=== PATIENT | female | born 1955 | race Caucasian/White ===

== ENCOUNTER 2017-06-26 15:34 | Inpatient (IN) ==
[2017-06-26] MEDS ORDERED: ASPIRIN 81 MG TAB.CHEW CHEWED ONE (15:57)
[2017-06-26] MEDS ORDERED: 0.9 % SODIUM CHLORIDE 1,000 ML IV ONE (15:57)
[2017-06-26] MEDS ORDERED: KETOROLAC 30 MG/ML VIAL IV ONE (15:57)
--- NOTE | 2017-06-26 16:02 | Emergency Department Note ---
Chest Pain HPI - General Source: patient, EMS Mode of arrival: EMS <Tim Amos - Last Filed: 06/26/17 15:58> - General Source: patient, EMS Mode of arrival: EMS Limitations: no limitations <Gary Zheng - Last Filed: 06/26/17 21:48> - General Chief Complaint: Chest Pain Stated Complaint: Chest pain Time Seen by Provider: 06/26/17 15:57 - History of Present Illness HPI Narrative: this is a 61 year old female coming into the ER today with c/o chest pain x 2 days. States has chest pain, shortness of breath, difficuly breathing. Denies fevers, chills, cough, nausea, vomiting, diarrhea, constipatio. States feels crappy upon illiciting furher information states she feels sad and depressed. Reports has thoughts of wanting to hurt herself and kill herself x 3 days. Denies wanting to hurt others or kill others at this presen ttime. Patient inappropriately laughed periodically during patient interview and exam. good eye contact. Patient would not answer as to why she feel sad, depressed and wanted to hurt and kill herself. (Tim Amos) I saw this patient with Tim Amos student and agree with his documentation. I also interviewed and examined the patient myself. Further questioning reveals patient is frustrated from chronic pain and is therefore thinking about suicide. Right now she is only on tramadol, but in the past has been taking stronger medicines. Additionally there is concern that she may have recurrence of her lung cancer treated with radiation last year. (Gary Zheng) - Related Data Home Medications Medication Instructions Recorded Confirmed acetaminophen 325 mg tablet 650 mg PO Q4H PRN 05/07/16 06/26/17 alteplase 2 mg intra-catheter 2 mg INTRA-CATHETER PRN ml 05/07/16 06/26/17 solution Budesonide/Formoterol Fumarate 10.2 gm IH BID 06/26/17 06/26/17 [Symbicort 160-4.5 Mcg Inhaler] Clopidogrel Bisulfate [Plavix] 75 mg PO DAILY 06/26/17 06/26/17 Fluticasone Propionate [Flovent 50 mcg IH DAILY 06/26/17 06/26/17 Diskus] Isosorbide Dinitrate [Isordil] 5 mg PO TID 06/26/17 06/26/17 Lurasidone HCl [Latuda] 80 mg PO DAILY 06/26/17 06/26/17 Megestrol Acetate [Megace Es] 625 mg PO DAILY 06/26/17 06/26/17 Potassium Chloride [Klor-Con M20] 20 meq PO DAILY 06/26/17 06/26/17 Prochlorperazine Maleate 10 mg PO Q6HP PRN 06/26/17 06/26/17 [Compazine] Vit B Comp C/Folic Acid/Vit D3 1 each PO DAILY 06/26/17 06/26/17 [Dialyvite 800 Plus D Wafer] hydrOXYzine PAMOATE [Hydroxyzine 25 mg PO HS PRN 06/26/17 06/26/17 Pamoate] predniSONE [Prednisone] 4 [facility] 06/26/17 06/26/17 rOPINIRole HCL [Requip] 3 mg PO QDAY 06/26/17 06/26/17 traZODone HCL [Desyrel] 300 mg PO DAILY 06/26/17 06/26/17 Previous Rx's Medication Instructions Recorded Ipratropium/Albuterol [Duoneb] 3 ml NEB Q4HP PRN #60 ampul.neb 07/23/15 Nebulizer Accessories [Reusable 1 each MC Q4HP PRN #1 kit 07/23/15 Nebulizer Kit] Nebulizer [Compact Ultrasonic 1 each MC Q4HP PRN #1 each 07/23/15 Nebulizer] omeprazole 20 mg capsule,delayed 20 mg PO BID #180 cap 09/05/15 release blood-glucose meter kit See Dose Instructions .ROUTE 09/13/15 .MEDSUPPLY #1 each traMADol [Ultram] 50 mg PO Q4-6HP PRN #20 tab 12/26/15 atorvastatin 40 mg tablet 40 mg PO QDAY #90 tab 04/03/16 midodrine 5 mg tablet 2.5 mg PO .qod #14 tab 06/03/16 ondansetron 4 mg disintegrating 4 mg PO Q4-6H PRN #30 tab 06/03/16 tablet albuterol sulfate HFA 90 180 mcg INHALATION Q6H PRN #6.7 g 12/28/16 mcg/actuation aerosol inhaler Allergies Allergy/AdvReac Type Severity Reaction Status Date / Time venom-honey bee Allergy Severe Unknown Verified 06/26/17 15:42 [bee venom (honey bee)] codeine Allergy Intermediate Rash Verified 06/26/17 15:42 pentazocine [From Talwin] Allergy Intermediate Rash Verified 06/26/17 15:42 Review of Systems Constitutional: Denies: fever, chills, weakness, weight change Eyes: Denies: eye pain, vision change ENT ED: Denies: dental pain Cardiovascular: Reports: chest pain, dyspnea on exertion Respiratory: Reports: shortness of breath. Denies: cough, hemoptysis, phlegm, wheezes, other Gastrointestinal: Denies: abdominal pain, nausea, vomiting, diarrhea, constipation, hematochezia, melena Genitourinary: Denies: urgency, dysuria, frequency <Tim Amos - Last Filed: 06/26/17 15:58> All systems ED: reviewed and negative except as stated. <Gary Zheng - Last Filed: 06/26/17 21:48> Chest Pain PMH - Past Medical History Medical history: Reports: COPD, renal disease, other (dialysis-dependent kidney failure) - Social History smoking status: Current every day smoker Alcohol use: Reports: None Drug use: Reports: none <Tim Amos - Last Filed: 06/26/17 15:58> - Past Medical History Attestation: Yes: The following information was validated with the patient. Medical history: Reports: cancer (Squamous cell lung carcinoma right-sided previously treated with radiation), COPD, diabetes, hyperlipidemia, hypertension , renal disease (Dialysis dependent but still makes urine), other (Esophageal stricture, orthostatic hypotension) Surgical history ED: Reports: appendectomy, , cholecystectomy, hysterectomy, tonsillectomy Psychiatric history: Reports: bipolar - Social History smoking status: Current every day smoker <Gary Zheng - Last Filed: 06/26/17 21:48> - Past Medical History PMFSH Narrative: Medical History Confusion (Acute) Generalized weakness (Acute) Admission for wound check of abscess (Acute) Esophageal stricture (Chronic) Chronic low back pain (Chronic) Diabetes mellitus, type II (Chronic) COPD (chronic obstructive pulmonary disease) (Chronic) Bipolar disorder (Chronic) Hyperparathyroidism (Chronic) Drug-induced toxicity of kidney (Chronic) Lung mass (Acute) [place] nephropathy (Chronic) ESRD (end stage renal disease) on dialysis (Chronic) Acute exacerbation of chronic obstructive airways disease (Chronic) Past Surgical History Hx of cholecystectomy (Acute) H/O: section (Acute) History of appendectomy (Acute) H/O: hysterectomy (Acute) H/O adenoidectomy (Acute) S/P tonsillectomy (Acute) History of surgery on extremity (Chronic 12/16/15) (Tim Amos) Physical Exam Head: atraumatic, normocephalic, normal inspection Chest: Present: normal inspection, symmetric chest wall rise Respiratory: Present: normal lung sounds bilaterally Cardiovascular: Present: regular rate, tachycardia Abdominal: Present: soft <Tim Amos - Last Filed: 06/26/17 15:58> Limitations: no limitations <Gary Zheng - Last Filed: 06/26/17 21:48> Cachectic female no acute distress. Wanting to move frequently. Chest pain is not reproducible with palpation of anterior chest wall. She has an indwelling vascular access right upper chest wall. She appears dehydrated with dry buccal mucosa and no pedal edema, some tenting of the skin. Repetitive movements of her tongue consistent with long-term antipsychotic drug side effect- EPS- tardive dyskinesia. (Gary Zheng) Vital Signs Temperature 97.0 F 06/26/17 15:35 Pulse Rate 113 H 06/26/17 15:35 Respiratory Rate 16 06/26/17 15:35 Blood Pressure 116/78 06/26/17 15:35 Pulse Oximetry (%) 98 06/26/17 15:35 Temperature 97.0 F 06/26/17 15:35 Pulse Rate 103 H 06/26/17 20:31 Respiratory Rate 16 06/26/17 15:35 Blood Pressure 128/107 06/26/17 20:31 Pulse Oximetry (%) 93 06/26/17 20:31 Chest Pain <Tim Amos - Last Filed: 06/26/17 15:58> - Lab Data Lab results reviewed: Yes I reviewed the patient's lab results. Result diagrams: 06/26/17 16:07 06/26/17 16:07 - Radiology Data Radiology results reviewed: Yes I reviewed the patient's radiology results. - EKG Data EKG attestation: Yes I reviewed and interpreted this EKG. <Gary Zheng - Last Filed: 06/26/17 21:48> - Lab Data Lab Results 06/26/17 06/26/17 06/26/17 Range/Units 16:07 16:07 16:07 WBC 14.5 H (4.5-11.0) K/mcL RBC 2.90 L (4.00-5.20) M/mcL Hgb 9.6 L (12.0-15.0) g/dL Hct 28.0 L (36.0-48.0) % POC Hct 30.0 L (36.0-48.0) % MCV 96.3 (80.0-100.0) fL MCH 33.1 (26.0-34.0) pg MCHC 34.3 (31.0-36.0) g/dL RDW 12.6 (11.5-14.5) % Plt Count 412 (140-440) K/mcL MPV 6.3 L (7.4-10.4) fL Gran % 82.7 H (38.0-78.0) % Lymph % (Auto) 7.3 L (15.5-49.0) % [place] % (Auto) 9.6 (1.0-12.0) % Eos % (Auto) 0.3 (0.0-7.0) % Baso % (Auto) 0.1 (0.0-2.0) % Gran # 12.0 H (1.8-8.0) K/mcL Lymph # (Auto) 1.1 L (1.5-4.8) K/mcL [place] # (Auto) 1.4 H (0.1-0.9) K/mcL Eos # (Auto) 0.1 (0.0-0.7) K/mcL Baso # (Auto) 0 (0.0-0.3) K/mcL D-Dimer 0.69 H (0.00-0.40) ug/ml POC Sodium 121 L (133-145) mmol/L Sodium 123 L (133-145) mmol/L POC Potassium 3.7 (3.3-5.1) mmol/L Potassium 3.8 (3.3-5.1) mmol/L POC Chloride 79 L (96-108) mmol/L Chloride 77 L (96-108) mmol/L Carbon Dioxide 30 (22-30) mmol/L POC Total CO2 31 H (22-30) mmol/L Anion Gap 16.0 (8-16) POC BUN 25 H (8-23) mg/dl BUN 25 H (8-23) mg/dl Creatinine 2.7 H (0.6-1.1) mg/dl POC Creatinine 3.0 H (0.6-1.1) mg/dl GFR Calculation 18 Glucose 111 H (70-105) mg/dL POC Glucose 110 H (70-105) mg/dL Calcium 12.2 H (8.6-10.4) mg/dl POC WB Ioniz Calcium 1.37 H (1.16-1.32) mmol/L Total Bilirubin 0.3 (0.0-1.0) mg/dL AST 15 (0-37) U/l ALT 7 (0-40) U/l Alkaline Phosphatase 112 (39-117) U/L Total Creatine Kinase 188 H (24-170) IU/L CK-MB (CK-2) 5.7 H (0-2.9) ng/ml Myoglobin 513 H (25-58) ng/ml Troponin T (0-0.03) ng/ml Total Protein 7.1 (5.9-8.4) gm/dL Albumin 4.3 (3.2-5.2) gm/dL Globulin 2.8 (2.2-3.7) gm/dL Albumin/Globulin Ratio 1.5 (1.0-2.3) Lipase 23 (7-60) U/L Procalcitonin (<0.10) ng/mL Urine Color Urine Appearance Urine pH (5.0-9.0) Ur Specific [place] (1.000-1.035) Urine Protein (NEG) mg/dL Urine Glucose (UA) (NEG) mg/dL Urine Ketones (NEG) mg/dL Urine Occult Blood (<0.03) mg/dL Urine Nitrate (NEG) Urine Bilirubin (NEG) mg/dL Urine Urobilinogen (NEG) mg/dL Ur Leukocyte Esterase (NEG) /uL Urine RBC (0-1) /hpf Urine WBC (0-4) /hpf Ur Squamous Epith Cells (0-4) /hpf Urine Bacteria (0) /hpf Ur Culture Indicated? 06/26/17 06/26/17 06/26/17 Range/Units 16:07 18:55 18:55 WBC (4.5-11.0) K/mcL RBC (4.00-5.20) M/mcL Hgb (12.0-15.0) g/dL Hct (36.0-48.0) % POC Hct (36.0-48.0) % MCV (80.0-100.0) fL MCH (26.0-34.0) pg MCHC (31.0-36.0) g/dL RDW (11.5-14.5) % Plt Count (140-440) K/mcL MPV (7.4-10.4) fL Gran % (38.0-78.0) % Lymph % (Auto) (15.5-49.0) % [place] % (Auto) (1.0-12.0) % Eos % (Auto) (0.0-7.0) % Baso % (Auto) (0.0-2.0) % Gran # (1.8-8.0) K/mcL Lymph # (Auto) (1.5-4.8) K/mcL [place] # (Auto) (0.1-0.9) K/mcL Eos # (Auto) (0.0-0.7) K/mcL Baso # (Auto) (0.0-0.3) K/mcL D-Dimer (0.00-0.40) ug/ml POC Sodium (133-145) mmol/L Sodium (133-145) mmol/L POC Potassium (3.3-5.1) mmol/L Potassium (3.3-5.1) mmol/L POC Chloride (96-108) mmol/L Chloride (96-108) mmol/L Carbon Dioxide (22-30) mmol/L POC Total CO2 (22-30) mmol/L Anion Gap (8-16) POC BUN (8-23) mg/dl BUN (8-23) mg/dl Creatinine (0.6-1.1) mg/dl POC Creatinine (0.6-1.1) mg/dl GFR Calculation Glucose (70-105) mg/dL POC Glucose (70-105) mg/dL Calcium (8.6-10.4) mg/dl POC WB Ioniz Calcium (1.16-1.32) mmol/L Total Bilirubin (0.0-1.0) mg/dL AST (0-37) U/l ALT (0-40) U/l Alkaline Phosphatase (39-117) U/L Total Creatine Kinase (24-170) IU/L CK-MB (CK-2) (0-2.9) ng/ml Myoglobin (25-58) ng/ml Troponin T 0.03 0.02 (0-0.03) ng/ml Total Protein (5.9-8.4) gm/dL Albumin (3.2-5.2) gm/dL Globulin (2.2-3.7) gm/dL Albumin/Globulin Ratio (1.0-2.3) Lipase (7-60) U/L Procalcitonin 0.17 (<0.10) ng/mL Urine Color Urine Appearance Urine pH (5.0-9.0) Ur Specific [place] (1.000-1.035) Urine Protein (NEG) mg/dL Urine Glucose (UA) (NEG) mg/dL Urine Ketones (NEG) mg/dL Urine Occult Blood (<0.03) mg/dL Urine Nitrate (NEG) Urine Bilirubin (NEG) mg/dL Urine Urobilinogen (NEG) mg/dL Ur Leukocyte Esterase (NEG) /uL Urine RBC (0-1) /hpf Urine WBC (0-4) /hpf Ur Squamous Epith Cells (0-4) /hpf Urine Bacteria (0) /hpf Ur Culture Indicated? 06/26/17 Range/Units 18:59 WBC (4.5-11.0) K/mcL RBC (4.00-5.20) M/mcL Hgb (12.0-15.0) g/dL Hct (36.0-48.0) % POC Hct (36.0-48.0) % MCV (80.0-100.0) fL MCH (26.0-34.0) pg MCHC (31.0-36.0) g/dL RDW (11.5-14.5) % Plt Count (140-440) K/mcL MPV (7.4-10.4) fL Gran % (38.0-78.0) % Lymph % (Auto) (15.5-49.0) % [place] % (Auto) (1.0-12.0) % Eos % (Auto) (0.0-7.0) % Baso % (Auto) (0.0-2.0) % Gran # (1.8-8.0) K/mcL Lymph # (Auto) (1.5-4.8) K/mcL [place] # (Auto) (0.1-0.9) K/mcL Eos # (Auto) (0.0-0.7) K/mcL Baso # (Auto) (0.0-0.3) K/mcL D-Dimer (0.00-0.40) ug/ml POC Sodium (133-145) mmol/L Sodium (133-145) mmol/L POC Potassium (3.3-5.1) mmol/L Potassium (3.3-5.1) mmol/L POC Chloride (96-108) mmol/L Chloride (96-108) mmol/L Carbon Dioxide (22-30) mmol/L POC Total CO2 (22-30) mmol/L Anion Gap (8-16) POC BUN (8-23) mg/dl BUN (8-23) mg/dl Creatinine (0.6-1.1) mg/dl POC Creatinine (0.6-1.1) mg/dl GFR Calculation Glucose (70-105) mg/dL POC Glucose (70-105) mg/dL Calcium (8.6-10.4) mg/dl POC WB Ioniz Calcium (1.16-1.32) mmol/L Total Bilirubin (0.0-1.0) mg/dL AST (0-37) U/l ALT (0-40) U/l Alkaline Phosphatase (39-117) U/L Total Creatine Kinase (24-170) IU/L CK-MB (CK-2) (0-2.9) ng/ml Myoglobin (25-58) ng/ml Troponin T (0-0.03) ng/ml Total Protein (5.9-8.4) gm/dL Albumin (3.2-5.2) gm/dL Globulin (2.2-3.7) gm/dL Albumin/Globulin Ratio (1.0-2.3) Lipase (7-60) U/L Procalcitonin (<0.10) ng/mL Urine Color Straw Urine Appearance Clear Urine pH 9.0 (5.0-9.0) Ur Specific [place] 1.004 (1.000-1.035) Urine Protein Neg (NEG) mg/dL Urine Glucose (UA) Negative (NEG) mg/dL Urine Ketones Neg (NEG) mg/dL Urine Occult Blood 0.03 A (<0.03) mg/dL Urine Nitrate Neg (NEG) Urine Bilirubin Neg (NEG) mg/dL Urine Urobilinogen Neg (NEG) mg/dL Ur Leukocyte Esterase Neg (NEG) /uL Urine RBC 0 (0-1) /hpf Urine WBC 0 (0-4) /hpf Ur Squamous Epith Cells 0 (0-4) /hpf Urine Bacteria 0 (0) /hpf Ur Culture Indicated? No - Radiology Data Bladder scan showed 948 mL of urine in her bladder so we placed a Goldberg she was not able to urinate after 2 attempts (Gary Zheng) - EKG Data EKG results narrative: EKG presented sinus tachycardia. Presentation of prolonged OK interval but no dropped QRS complexes, possibly indicative of a 1st degree AV block. No ST depressions or elevations. Normal axis. (Tim Amos) No Q waves (Gary Zheng) Disposition Pt seen by [facility] only: No <Tim Amos - Last Filed: 06/26/17 15:58> Pt seen by [facility]/PA only: No <Gary Zheng - Last Filed: 06/26/17 21:48> Clinical Impression: Hyponatremia, Hypercalcemia, Urinary retention Lung cancer Qualifiers: Laterality: right Lung location: unspecified part of lung Qualified Code(s): C34.91 - Malignant neoplasm of unspecified part of right bronchus or lung Chest pain Qualifiers: Chest pain type: unspecified Qualified Code(s): R07.9 - Chest pain, unspecified Leukocytosis Qualifiers: Leukocytosis type: unspecified Qualified Code(s): D72.829 - Elevated white blood cell count, unspecified Summary: 1.) Chest pain a.) Due to the concern for reported depression and thoughts of hurting self and wanting to kill self we should contact for behavioral health b.) Order EKG c.) Order labs d.) Order aspirin e.) Order nitroglycerin f.) Order Toradol g.) Order CXR h.) Consult with Dr. Zheng for further work up. (Tim Amos) Ruled out cardiac causes of chest pain with 2 sets of troponins 3 hours apart. Chest x-ray did not show concerning cause for chest pain. EKG did not show signs of ischemia Laboratory showed hyponatremia which is new but down only 5 points from last dialysis labs at 128. Discussed her case with Dr. Sanford, her make ready mechanic, who is concerned about the possibility of fluid overload versus dehydration. clinically she looks dehydrated and we did give her 1 L of normal saline. Additionally she is hypercalcemic-which may be secondary to hyperparathyroidism or SIADH/lung cancer return Goldberg catheter was placed for urinary retention; urine was not consistent with an infection. However she does have mild leukocytosis Discussed her case with Dr. Quispe the hospitalist who agreed to admit the patient for further care and evaluation of these issues (Gary Zheng) Disposition: Xfer As Inpt ([facility]) Condition: Serious Referrals: Yaquelin Sow ARNP [Primary Care Provider] -
[2017-06-26] MEDS ORDERED: HYDROcodone/APAP 5/325MG TABLET PO ONE (16:23)
--- NOTE | 2017-06-26 16:27 | XRay Report ---
INDICATION: Chest pain. History of lung cancer. TECHNIQUE: PA and lateral upright chest x-ray COMPARISON: Previous chest x-rays dated 04/15/2017, 10/02/2016, 06/26/2016, 01/29/2016 FINDINGS:No change in position of double-lumen right central venous catheter. No focal pulmonary parenchymal infiltrate or mass. Lungs are negative. Heart size and vascularity are normal. [place] and mediastinum are negative. No pleural fluid. No thoracic compression fracture. No acute abnormality or interval change. IMPRESSION: 1. No acute or focal abnormality 2. No interval change since 04/15/2017 Interpreted and Authenticated by: Kushal Schroeder 06/26/17
[2017-06-26] MEDS: NITROGLYCERIN 0.4 MG TAB.SUBL SL PRN ×2 (16:34→16:39)
[2017-06-26 16:50] LABS: Basophils # (Auto) 0 K/mcL (0.0-0.3); Basophils % (Auto) 0.1 % (0.0-2.0); Eosinophils # (Auto) 0.1 K/mcL (0.0-0.7); Eosinophils % (Auto) 0.3 % (0.0-7.0); Granulocytes % (Auto) 82.7 % (38.0-78.0); Lymphocytes # (Auto) 1.1 K/mcL (1.5-4.8); Lymphocytes % (Auto) 7.3 % (15.5-49.0); Mean Cell Volume 96.3 fL (80.0-100.0); Mean Corpuscular HGB Conc 34.3 g/dL (31.0-36.0); Mean Corpuscular Hemoglobin 33.1 pg (26.0-34.0); Monocytes # (Auto) 1.4 K/mcL (0.1-0.9); Monocytes % (Auto) 9.6 % (1.0-12.0); Platelet Count 412 K/mcL (140-440); Red Cell Distribution Width 12.6 % (11.5-14.5)
[2017-06-26 17:13] LABS: Creatine Kinase MB 5.7 ng/ml (0-2.9); Myoglobin 513 ng/ml (25-58)
[2017-06-26 17:17] LABS: ALT/SGPT 7 U/l (0-40); Albumin 4.3 gm/dL (3.2-5.2); Albumin/Globulin Ratio 1.5 (1.0-2.3); Alkaline Phosphatase 112 U/L (39-117); Blood Urea Nitrogen 25 mg/dl (8-23); Creatine Kinase 188 IU/L (24-170); Lipase 23 U/L (7-60)
[2017-06-26 19:41] LABS: Appearance,Urine CLEAR; Bacteria,Urine 0 /hpf (0); Bilirubin,Urine NEG (NEG); Color,Urine STRAW; Glucose,Urine (UA) NEGATIVE (NEG); Leukocyte Esterase,Urine NEG /uL (NEG); Nitrate,Urine NEG (NEG); Protein,Urine NEG (NEG); Specific Gravity,Urine 1.004 (1.000-1.035); Urine Blood 0.03 mg/dL (<0.03); Urine RBC 0 /hpf (0-1); Urine Squamous Epithelial Cell 0 /hpf (0-4); Urine WBC 0 /hpf (0-4); Urobilinogen,Urine NEG (NEG)
[2017-06-26] MEDS ORDERED: NITROGLYCERIN 0.4 MG TAB.SUBL SL PRN (22:10)
[2017-06-26] MEDS ORDERED: 0.9 % SODIUM CHLORIDE 1,000 ML IV SCH (22:10)
[2017-06-26] MEDS ORDERED: NALOXONE HCL 0.4 MG/ML VIAL IV PRN (22:10)
[2017-06-26] MEDS ORDERED: ACETAMINOPHEN 325 MG TABLET PO PRN (22:10)
[2017-06-26] MEDS ORDERED: ONDANSETRON 4 MG/2 ML VIAL IV PRN (22:10)
--- NOTE | 2017-06-26 22:25 | Internal Med History&Physical ---
Medical - H&P: HPI Patient information: Note initiated : 06/26/17 at 10:21 pm Service Date, if different from initiated Date: [] Patient: Amanda Wetzel 61 y/o F admitted on 06/26/17 for Chest pain. Chief Complaint: [] History of present illness: Ms. Wetzel is a 61 year old Female with h/o bipolar disorder, esrd on hd, presents to the ER because of weakness and chest pains. Patient is a very poor historian and does not provide much history, Most of the information is obtained from chart review and discussing the case with ER and stacker operator. Chest pain started yesterday and is retrosternal, not able to give any further details denies any chest pain. She also notes hurts all over and was weak. She admits to having poor intake and some nausea. But Denies any other complaints. The patient in the ER was evaluated further, noted to be hyponatremic with sodium of 123, bun 25, creat 2.7, ca 12.2, ionized 1.37. the patient has intermittent hyponatremia but last sodium wsa apparently > 130, the patient troponin was negative x 2, no acute ekg changes noted. X ray chest was neg, WBC elevated, ua was negative, procalcitonin indicative of low risk of infection. The patient also reported that she is suicidal in the ER, She was seen by [facility] and a contract was signed, according to the ER physician she was cleared from their end The patient was admitted to the hospital for further management. The patient has h/o lung cancer, s/p radiation, recurred, now being followed., h /o tertiary hyper calcemia is present. 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 polyuria All systems: reviewed and no additional remarkable complaints except as stated ( as per hpi, very poor historian not able to get much history) Medical - H&P: [facility] Medical history: Medical History Confusion (Acute) Generalized weakness (Acute) Hyponatremia (Acute) Hypercalcemia (Acute) Urinary retention (Acute) Lung cancer (Acute) Chest pain (Acute) Leukocytosis (Acute) Admission for wound check of abscess (Acute) Esophageal stricture (Chronic) Chronic low back pain (Chronic) Diabetes mellitus, type II (Chronic) COPD (chronic obstructive pulmonary disease) (Chronic) Bipolar disorder (Chronic) Hyperparathyroidism (Chronic) Drug-induced toxicity of kidney (Chronic) Lung mass (Acute) [place] nephropathy (Chronic) ESRD (end stage renal disease) on dialysis (Chronic) Acute exacerbation of chronic obstructive airways disease (Chronic) Surgical history: Past Surgical History Hx of cholecystectomy (Acute) H/O: section (Acute) History of appendectomy (Acute) H/O: hysterectomy (Acute) H/O adenoidectomy (Acute) S/P tonsillectomy (Acute) History of surgery on extremity (Chronic 12/16/15) Pertinent family history: Family History Father Cardiac disease Mother Cardiac disease Medical - H&P: Meds Home Medications Medication Instructions Recorded Confirmed Type Ipratropium/Albuterol [Duoneb] 3 ml NEB Q4HP PRN #60 ampul.neb 07/23/15 Rx Nebulizer Accessories [Reusable 1 each MC Q4HP PRN #1 kit 07/23/15 06/26/17 Rx Nebulizer Kit] Nebulizer [Compact Ultrasonic 1 each MC Q4HP PRN #1 each 07/23/15 06/26/17 Rx Nebulizer] omeprazole 20 mg capsule,delayed 20 mg PO BID #180 cap 09/05/15 01/27/17 Rx release blood-glucose meter kit See Dose Instructions .ROUTE 09/13/15 01/27/17 Rx .MEDSUPPLY #1 each traMADol [Ultram] 50 mg PO Q4-6HP PRN #20 tab 12/26/15 06/26/17 Rx atorvastatin 40 mg tablet 40 mg PO QDAY #90 tab 04/03/16 06/26/17 Rx acetaminophen 325 mg tablet 650 mg PO Q4H PRN 05/07/16 06/26/17 History alteplase 2 mg intra-catheter 2 mg INTRA-CATHETER PRN ml 05/07/16 06/26/17 History solution midodrine 5 mg tablet 2.5 mg PO .qod #14 tab 06/03/16 06/26/17 Rx ondansetron 4 mg disintegrating 4 mg PO Q4-6H PRN #30 tab 06/03/16 06/26/17 Rx tablet albuterol sulfate HFA 90 180 mcg INHALATION Q6H PRN #6.7 g 12/28/16 06/26/17 Rx mcg/actuation aerosol inhaler Budesonide/Formoterol Fumarate 10.2 gm IH BID 06/26/17 06/26/17 History [Symbicort 160-4.5 Mcg Inhaler] Clopidogrel Bisulfate [Plavix] 75 mg PO DAILY 06/26/17 06/26/17 History Fluticasone Propionate [Flovent 50 mcg IH DAILY 06/26/17 06/26/17 History Diskus] Isosorbide Dinitrate [Isordil] 5 mg PO TID 06/26/17 06/26/17 History Lurasidone HCl [Latuda] 80 mg PO DAILY 06/26/17 06/26/17 History Megestrol Acetate [Megace Es] 625 mg PO DAILY 06/26/17 06/26/17 History Potassium Chloride [Klor-Con M20] 20 meq PO DAILY 06/26/17 06/26/17 History Prochlorperazine Maleate 10 mg PO Q6HP PRN 06/26/17 06/26/17 History [Compazine] Vit B Comp C/Folic Acid/Vit D3 1 each PO DAILY 06/26/17 06/26/17 History [Dialyvite 800 Plus D Wafer] hydrOXYzine PAMOATE [Hydroxyzine 25 mg PO HS PRN 06/26/17 06/26/17 History Pamoate] predniSONE [Prednisone] 4 mg PO QAC 06/26/17 06/26/17 History rOPINIRole HCL [Requip] 3 mg PO QDAY 06/26/17 06/26/17 History traZODone HCL [Desyrel] 300 mg PO DAILY 06/26/17 06/26/17 History Allergies Allergy/AdvReac Type Severity Reaction Status Date / Time venom-honey bee Allergy Severe Unknown Verified 06/26/17 15:42 [bee venom (honey bee)] codeine Allergy Intermediate Rash Verified 06/26/17 15:42 pentazocine [From Talwin] Allergy Intermediate Rash Verified 06/26/17 15:42 Medical - H&P: Exam - Constitutional Vitals: Temp Pulse Resp BP Pulse Ox 97.0 F 112 H 16 147/60 89 L 06/26/17 15:35 06/26/17 21:01 06/26/17 15:35 06/26/17 21:01 06/26/17 21:01 Exam: GENERAL: The patient is a well-developed, well-nourished in no apparent distress. Is alert and oriented x2. VITAL SIGNS: Reviewed and as noted elsewhere. HEENT: Head is normocephalic and atraumatic. Extraocular muscles are intact. Pupils are equal, round, and reactive to light. Nares appeared normal. Mouth appears any without lesions. Mucous membranes are dry, she has oral diskinesa. NECK: Normal to inspection, Supple, No lymphadenopathy or thyromegaly. LUNGS: Air entry equal on both sides, no wheezing, crackles or rhonchi noted. No accessory muscles of respiration HEART: Regular rate and rhythm normal, S1 and S2 heard, no Gallop, S3 or Rub Noted, No Gross murmur heard. ABDOMEN: Soft, nontender, and nondistended. Positive bowel sounds. No hepatosplenomegaly was noted. EXTREMITIES: No cyanosis, clubbing, rash, lesions or edema. NEUROLOGIC: Cranial nerves II through XII are grossly intact. Motor and Sensory System Grossly Intact PSYCHIATRIC: flat affect, poor eye contact, lack of significant insight. SKIN: appears dry clinically, No ulceration or wounds noted, No jaundice, No rash noted. Medical - H&P: Reslt - Labs CBC & Chem 7: 06/26/17 16:07 06/26/17 16:07 Labs: Short CBC 06/26/17 Range/Units 16:07 WBC 14.5 H (4.5-11.0) K/mcL Hgb 9.6 L (12.0-15.0) g/dL Hct 28.0 L (36.0-48.0) % Plt Count 412 (140-440) K/mcL BMP 06/26/17 16:07 Sodium 123 L Potassium 3.8 Chloride 77 L Carbon Dioxide 30 BUN 25 H Creatinine 2.7 H Glucose 111 H Calcium 12.2 H Cardiac Enzymes 06/26/17 06/26/17 06/26/17 Range/Units 16:07 16:07 18:55 Total Creatine Kinase 188 H (24-170) IU/L CK-MB (CK-2) 5.7 H (0-2.9) ng/ml Troponin T 0.03 0.02 (0-0.03) ng/ml Liver Function 06/26/17 Range/Units 16:07 Total Bilirubin 0.3 (0.0-1.0) mg/dL AST 15 (0-37) U/l ALT 7 (0-40) U/l Alkaline Phosphatase 112 (39-117) U/L Albumin 4.3 (3.2-5.2) gm/dL Urine 06/26/17 Range/Units 18:59 Urine Color Straw Urine Appearance Clear Urine pH 9.0 (5.0-9.0) Ur Specific [place] 1.004 (1.000-1.035) Urine Protein Neg (NEG) mg/dL Urine Glucose (UA) Negative (NEG) mg/dL Medical - H&P: A/P - Narrative A/P Narrative: A/P Acute on Chr Hyponatremia: clinically appears slightly hypovolumic, IV fluids given in ER, will continue with gentle hydration. get urine sodium, tsh, cortisol level. Gentle hydration for now. Adjust fluids based on Na level. ESRD on HD: Nephrology aware, will ask for consult if patient becomes hypervolumic needing HD. Lung Cancer: This may be the underlying etiology for possible SIADH, for now will monitor Hypercalcemia: Due to mets? vs Hyperparathyroidism, Will review home meds, (do not see senispar or calcitriol on the list supposed to be on it ? ). IV fluids should help. monitor closely for now. DM start on sliding scale insulin HTN resume home meds as appropriate. monitor bp Bipolar disorder/ : On latuda, follows with [facility] COPD: Patient to [place] while inpatient for now. Depression with Suicidal ideations: Denies same with me, did not endorse any such thoughts, patient seen by [facility] safety contract signed Leucocytosis: Etiology unknown, monitor, patient X ray is negative, UA is neg and procalcitonin is low probability for bacterial infection. Will broaden workup if patients wbc counts trend up. DVT hep sq CARB RENAL DIET
[2017-06-26 22:49] LABS: Osmolality,Urine 177 mOsm/kg (80-1000)
[2017-06-26] MEDS ORDERED: DEXTROSE 31 GM ORAL.SUSP PO PRN (22:56)
[2017-06-26] MEDS ORDERED: DEXTROSE 50% 50 ML VIAL IV PRN (22:56)
[2017-06-26 23:15] LABS: Blood Urea Nitrogen 26 mg/dl (8-23)
[2017-06-26] MEDS: IPRATROPIUM/ALBUTEROL 3 ML AMPUL.NEB NEB SCH (23:34)
[2017-06-27] MEDS: oxyCODONE/APAP 5/325MG TABLET PO PRN ×4 (00:40→20:05)
[2017-06-27] MEDS: hydrOXYzine 25 MG TABLET PO PRN ×2 (01:22→20:05)
[2017-06-27] MEDS: IPRATROPIUM/ALBUTEROL 3 ML AMPUL.NEB NEB SCH ×6 (03:32→23:14)
[2017-06-27 06:02] LABS: Basophils # (Auto) 0 K/mcL (0.0-0.3); Basophils % (Auto) 0.3 % (0.0-2.0); Eosinophils # (Auto) 0 K/mcL (0.0-0.7); Eosinophils % (Auto) 0 % (0.0-7.0); Granulocytes % (Auto) 80.7 % (38.0-78.0); Lymphocytes # (Auto) 0.8 K/mcL (1.5-4.8); Lymphocytes % (Auto) 10.4 % (15.5-49.0); Mean Cell Volume 96.4 fL (80.0-100.0); Mean Corpuscular HGB Conc 34.1 g/dL (31.0-36.0); Mean Corpuscular Hemoglobin 32.8 pg (26.0-34.0); Monocytes # (Auto) 0.7 K/mcL (0.1-0.9); Monocytes % (Auto) 8.6 % (1.0-12.0); Platelet Count 388 K/mcL (140-440); Red Cell Distribution Width 12.7 % (11.5-14.5)
[2017-06-27 06:32] LABS: ALT/SGPT 7 U/l (0-40); Albumin 3.9 gm/dL (3.2-5.2); Albumin/Globulin Ratio 1.4 (1.0-2.3); Alkaline Phosphatase 109 U/L (39-117); Bilirubin,Direct < 0.2 mg/dL (0.0-0.3); Blood Urea Nitrogen 28 mg/dl (8-23); Gamma Glutamyl Transpeptidase 15 U/L (5-36); Magnesium 2.7 mg/dL (1.6-2.5); Uric Acid 4.2 mg/dL (2.5-8.0)
[2017-06-27] MEDS: ISOSORBIDE DINITRATE 10 MG TABLET PO SCH ×3 (08:34→17:06)
[2017-06-27] MEDS: INSULIN LISPRO 1 UNIT/0.01 ML UNIT SQ SCH ×4 (08:42→20:21)
[2017-06-27] MEDS ORDERED: ENOXAPARIN 40 MG/0.4 ML SYRINGE SQ SCH (09:00)
[2017-06-27] MEDS: MEGESTROL ACETATE 625 MG PO SCH (09:06)
[2017-06-27] MEDS: LURASIDONE HCL 80 MG PO SCH (09:06)
[2017-06-27] MEDS: FLUTICASONE HFA 220MCG INHALER INH SCH ×2 (09:06→20:21)
[2017-06-27] MEDS: Budesonide/Formoterol Fumarate [Symbicort] 160-4.5 mcg Inhaler INH SCH ×2 (09:06→20:21)
[2017-06-27] MEDS: HEPARIN 5,000 UNIT/ML VIAL SQ SCH ×2 (09:12→20:05)
[2017-06-27] MEDS: rOPINIRole 1 MG TABLET PO SCH (09:12)
[2017-06-27] MEDS: FOLIC ACID/VITAMIN B COMP W-C 1 TAB TABLET PO SCH (09:12)
[2017-06-27] MEDS: CLOPIDOGREL 75 MG TABLET PO SCH (09:12)
[2017-06-27] MEDS: POTASSIUM CHLORIDE 20 MEQ PACKET PO SCH (09:12)
--- NOTE | 2017-06-27 15:30 | Nephrology Consult Note ---
History of Present Illness - Reason for Consult Patient information: Note initiated : 06/27/17 at 3:26 pm Service Date, if different from initiated Date: [] Patient: Amanda Wetzel 61 y/o F admitted on 06/26/17 for Chest pain. Chief Complaint: [] Consult date: 06/27/17 end stage renal disease, hyponatremia Requesting physician: Gary Zheng - Chief Complaint chest pain - History of Present Illness Ms Wetzel is a 61 y/o female with PMH of ESRD on HD, bipolar disorder and other medical issues who presented to the ED with c/o CP and ot feeling well Patient has not been able to provide much history and information obtained from review of medical records She came yesterday to ED with c/o CP and suicidal ideation. c/o SOB. 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 HD Tertiary hyperparathyroidism lung ca s/p radiation with recurrence which is been monitored anemia of chronic disease not on aranesp given recurrent cancer COPD 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 Past surgical history: s/p AVF also has TCC Past family history: Not pertinent Past social history: lives with her in [place] past soker, quit a year ago smokes weed Medications and Allergies Home Medications Medication Instructions Recorded Confirmed Type Ipratropium/Albuterol [Duoneb] 3 ml NEB Q4HP PRN #60 ampul.neb 07/23/15 Rx Nebulizer Accessories [Reusable 1 each MC Q4HP PRN #1 kit 07/23/15 06/26/17 Rx Nebulizer Kit] Nebulizer [Compact Ultrasonic 1 each MC Q4HP PRN #1 each 07/23/15 06/26/17 Rx Nebulizer] omeprazole 20 mg capsule,delayed 20 mg PO BID #180 cap 09/05/15 01/27/17 Rx release blood-glucose meter kit See Dose Instructions .ROUTE 09/13/15 01/27/17 Rx .MEDSUPPLY #1 each traMADol [Ultram] 50 mg PO Q4-6HP PRN #20 tab 12/26/15 06/26/17 Rx atorvastatin 40 mg tablet 40 mg PO QDAY #90 tab 04/03/16 06/26/17 Rx acetaminophen 325 mg tablet 650 mg PO Q4H PRN 05/07/16 06/26/17 History alteplase 2 mg intra-catheter 2 mg INTRA-CATHETER PRN ml 05/07/16 06/26/17 History solution midodrine 5 mg tablet 2.5 mg PO .qod #14 tab 06/03/16 06/26/17 Rx ondansetron 4 mg disintegrating 4 mg PO Q4-6H PRN #30 tab 06/03/16 06/26/17 Rx tablet albuterol sulfate HFA 90 180 mcg INHALATION Q6H PRN #6.7 g 12/28/16 06/26/17 Rx mcg/actuation aerosol inhaler Budesonide/Formoterol Fumarate 10.2 gm IH BID 06/26/17 06/26/17 History [Symbicort 160-4.5 Mcg Inhaler] Clopidogrel Bisulfate [Plavix] 75 mg PO DAILY 06/26/17 06/26/17 History Fluticasone Propionate [Flovent 50 mcg IH DAILY 06/26/17 06/26/17 History Diskus] Isosorbide Dinitrate [Isordil] 5 mg PO TID 06/26/17 06/26/17 History Lurasidone HCl [Latuda] 80 mg PO DAILY 06/26/17 06/26/17 History Megestrol Acetate [Megace Es] 625 mg PO DAILY 06/26/17 06/26/17 History Potassium Chloride [Klor-Con M20] 20 meq PO DAILY 06/26/17 06/26/17 History Prochlorperazine Maleate 10 mg PO Q6HP PRN 06/26/17 06/26/17 History [Compazine] Vit B Comp C/Folic Acid/Vit D3 1 each PO DAILY 06/26/17 06/26/17 History [Dialyvite 800 Plus D Wafer] hydrOXYzine PAMOATE [Hydroxyzine 25 mg PO HS PRN 06/26/17 06/26/17 History Pamoate] predniSONE [Prednisone] 4 mg PO [facility] 06/26/17 06/26/17 History rOPINIRole HCL [Requip] 3 mg PO QDAY 06/26/17 06/26/17 History traZODone HCL [Desyrel] 300 mg PO DAILY 06/26/17 06/26/17 History Allergies Allergy/AdvReac Type Severity Reaction Status Date / Time venom-honey bee Allergy Severe Unknown Verified 06/26/17 15:42 [bee venom (honey bee)] codeine Allergy Intermediate Rash Verified 06/26/17 15:42 pentazocine [From Talwin] Allergy Intermediate Rash Verified 06/26/17 15:42 Exam - Vital Signs Vital signs: Temp Pulse Resp BP Pulse Ox 98.5 F 107 H 16 152/78 95 06/27/17 12:00 06/27/17 11:27 06/27/17 12:00 06/27/17 12:00 06/27/17 12:00 - General Appearance General appearance: appears started age, chronically ill EENT: mucous membranes dry Neck: no JVD Respiratory: clear Cardiology: no rub, no edema, normal S1, normal S2 Gastrointestinal: no tenderness, no guarding Integumentary: no rash, warm and dry Neurologic: disoriented (pt awake, responds partly to verbal commands, restless) Musculoskeletal: no erythema, no cyanosis Results - Lab Results 06/27/17 04:25 06/27/17 04:25 Most recent lab results Calcium 11.1 mg/dl (8.6-10.4) H 06/27/17 04:25 Phosphorus 3.9 mg/dL (2.7-4.5) 06/27/17 04:25 Magnesium 2.7 mg/dL (1.6-2.5) H 06/27/17 04:25 Assessment and Plan (1) Hyponatremia likely from volume depletion may have component for SIADH given severe pain sodium level improving with gentle IV hydration Hypercalcemia from tertiay hyperparathyroidism unclear if she has been taking her sensipar I have already held her calcitriol on dialysis I will resume her sensipar at 90mg po daily hopefully this will help with improving calcium to normal AMS: this is new ? etiology multiple meds that she takes can cause this including megace, trazodone, latuda , vs electrolyte abnormality vs other etiology CT brain a weak ago was negative if does not improve with correction of her serum electrolytes consider MRI brain to ensure no metastatic lesion ESRD: Will arrange for dialysis tomorrow Appreciate hospitalist help in managing this pt Will need to discuss goals of care with and also ? needs placement on discharge Status: Acute (2) Hypercalcemia Status: Acute (3) ESRD (end stage renal disease) on dialysis Status: Chronic Comment: 08/27/2015Tony
--- NOTE | 2017-06-27 16:33 | Internal Med Progress Note ---
Medical - PN: Subj Patient information: Note initiated : 06/27/17 at 4:30 pm Service Date, if different from initiated Date: [] Patient: Amanda Wetzel 61 y/o F admitted on 06/26/17 for Chest pain. Chief Complaint: [] Interval history: Ms. Wetzel is a 61 year old Female with h/o bipolar disorder, esrd on hd, presents to the ER because of weakness and chest pains. Patient is a very poor historian and does not provide much history, Most of the information is obtained from chart review and discussing the case with ER and production pattern maker. Chest pain started yesterday and is retrosternal, not able to give any further details denies any chest pain. She also notes hurts all over and was weak. She admits to having poor intake and some nausea. But Denies any other complaints. The patient in the ER was evaluated further, noted to be hyponatremic with sodium of 123, bun 25, creat 2.7, ca 12.2, ionized 1.37. the patient has intermittent hyponatremia but last sodium wsa apparently > 130, the patient troponin was negative x 2, no acute ekg changes noted. X ray chest was neg, WBC elevated, ua was negative, procalcitonin indicative of low risk of infection. The patient also reported that she is suicidal in the ER, She was seen by [facility] and a contract was signed, according to the ER physician she was cleared from their end The patient was admitted to the hospital for further management. The patient has h/o lung cancer, s/p radiation, recurred, now being followed., h /o tertiary hyper calcemia is present. 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 polyuria June 27 patient seen examined, denies any acute complaints, but not able to communicate much with me. Case reviewed with nephrology plan to monitor sodium closely consider fluid restrictions and salt tablets if sodium does not continue to improve with hydration. hold vit d for hypercalcemia Check MRI brain without contrast for now, given esrd status, and h/o lung cancer to evaluaet etiology for Altered mental status. Pertinent ROS: unable due to mental status. Additional PMFSH (Level 3 Only): Medical History Confusion (Acute) Generalized weakness (Acute) Hyponatremia (Acute) Hypercalcemia (Acute) Urinary retention (Acute) Lung cancer (Acute) Chest pain (Acute) Leukocytosis (Acute) Admission for wound check of abscess (Acute) Esophageal stricture (Chronic) Chronic low back pain (Chronic) Diabetes mellitus, type II (Chronic) COPD (chronic obstructive pulmonary disease) (Chronic) Bipolar disorder (Chronic) Hyperparathyroidism (Chronic) Drug-induced toxicity of kidney (Chronic) Lung mass (Acute) [place] nephropathy (Chronic) ESRD (end stage renal disease) on dialysis (Chronic) Acute exacerbation of chronic obstructive airways disease (Chronic) - Constitutional Vitals: Vital Signs Temp Pulse Resp BP Pulse Ox 98.5 F 107 H 16 152/78 95 06/27/17 12:00 06/27/17 11:27 06/27/17 12:00 06/27/17 12:00 06/27/17 12:00 Period Temp Pulse Resp BP Sys/Craig Pulse Ox Last 24 Hr 97.3 F-99.1 F 57-120 14-20 89-157/55-107 89-99 Intake and Output 06/27/17 06/27/17 06/27/17 05:59 13:59 21:59 Intake Total 120 / 120 300 / 300 Output Total 950 / 950 900 / 900 Balance -830 / -830 -600 / -600 Intake & Output: Intake & Output 06/27/17 06/27/17 06/27/17 05:59 13:59 21:59 Intake Total 120 / 120 300 / 300 Output Total 950 / 950 900 / 900 Balance -830 / -830 -600 / -600 Intake: Oral 120 / 120 300 / 300 Output: Urine Catheter Amount 950 / 950 900 / 900 Other: Meal Lunch Percent of Meal Consumed 15 Feeding Ability Assist with Tray Set Up # Bowel Movements 0 Exam: Constitutional; Afebrile, cooperative, awake, Eyes- No icterus, , No periorbital swelling Ears- Ext ear normal, hearing normal to conversation. Neck- Midline trachea, supple Respiratory system: Air Entry equal on both sides, No crackles or wheezing, no rhonchi. CVS- Rate rhythm irregular, S1,S2 heard, no gallop, no rub. Abdomen- Soft nontender abdomen, no organomegaly, no tenderness, no guarding or rigidity, INSPECTOR REPAIRER- AOOx1, moving all extremities, no gross focal deficit noted. oral dyskiesia present Medical - PN: Obj Da - Labs CBC & Chem 7: 06/27/17 04:25 06/27/17 04:25 Labs: Abnormal Lab Results 06/27/17 06/27/17 06/26/17 04:25 04:25 22:30 WBC RBC 2.70 L Hgb 8.9 L Hct 26.1 L POC Hct MPV 6.6 L Gran % 80.7 H Lymph % (Auto) 10.4 L Gran # Lymph # (Auto) 0.8 L [place] # (Auto) D-Dimer POC Sodium Sodium 126 L POC Chloride Chloride 84 L POC Total CO2 Anion Gap POC BUN BUN 28 H Creatinine 3.5 H POC Creatinine Glucose POC Glucose Osmolality 272 L Calcium 11.1 H POC WB Ioniz Calcium Magnesium 2.7 H Total Creatine Kinase CK-MB (CK-2) Myoglobin Urine Occult Blood 06/26/17 06/26/17 06/26/17 22:30 18:59 16:07 WBC RBC Hgb Hct POC Hct 30.0 L MPV Gran % Lymph % (Auto) Gran # Lymph # (Auto) [place] # (Auto) D-Dimer POC Sodium 121 L Sodium 123 L 123 L POC Chloride 79 L Chloride 79 L 77 L POC Total CO2 31 H Anion Gap 17.0 H POC BUN 25 H BUN 26 H 25 H Creatinine 3.2 H 2.7 H POC Creatinine 3.0 H Glucose 115 H 111 H POC Glucose 110 H Osmolality Calcium 12.0 H 12.2 H POC WB Ioniz Calcium 1.37 H Magnesium Total Creatine Kinase 188 H CK-MB (CK-2) 5.7 H Myoglobin 513 H Urine Occult Blood 0.03 A 06/26/17 06/26/17 16:07 16:07 WBC 14.5 H RBC 2.90 L Hgb 9.6 L Hct 28.0 L POC Hct MPV 6.3 L Gran % 82.7 H Lymph % (Auto) 7.3 L Gran # 12.0 H Lymph # (Auto) 1.1 L [place] # (Auto) 1.4 H D-Dimer 0.69 H POC Sodium Sodium POC Chloride Chloride POC Total CO2 Anion Gap POC BUN BUN Creatinine POC Creatinine Glucose POC Glucose Osmolality Calcium POC WB Ioniz Calcium Magnesium Total Creatine Kinase CK-MB (CK-2) Myoglobin Urine Occult Blood Meds: Medications Acetaminophen (Tylenol) 650 mg PO Q6HP PRN PRN Reason: PAIN/FEVER > 101 Albuterol/Ipratropium (Duoneb) 3 ml NEB Q4HRT [facility] Last Admin: 06/27/17 15:17 Dose: Not Given Atorvastatin Calcium (Lipitor) 40 mg PO HS [facility] Cinacalcet (Sensipar) 90 mg PO QAMCC [facility] Clopidogrel Bisulfate (Plavix) 75 mg PO DAILY [facility] Last Admin: 06/27/17 09:12 Dose: 75 mg Dextrose (Dextrose 50%) 0 ml IV UD PRN PRN Reason: Hypoglycemia Diagnostic Test (Pha) (Accu-Chek) 1 each FS [facility] Last Admin: 06/27/17 12:26 Dose: 1 each Fluticasone Propionate (Flovent Hfa 220mcg) 1 puff INH BID [facility] Last Admin: 06/27/17 09:06 Dose: Not Given Glucose (Insta-Glucose) 15 gm PO PRN PRN PRN Reason: Hypoglycemia Heparin Sodium (Porcine) (Heparin) 5,000 unit SQ Q12 [facility] Last Admin: 06/27/17 09:12 Dose: 5,000 unit Hydroxyzine HCl (Atarax) 25 mg PO HSP PRN PRN Reason: Sleep Last Admin: 06/27/17 01:22 Dose: 25 mg Insulin Human Lispro (Humalog) 0 unit SQ [facility] PRN Reason: Protocol Last Admin: 06/27/17 12:26 Dose: Not Given Isosorbide Dinitrate (Isordil) 5 mg PO TIDAC [facility] Last Admin: 06/27/17 14:29 Dose: 5 mg Multivit/Ca Carb/B Cmplx/FA/Prenat (Diatx) 1 tab PO DAILY [facility] Last Admin: 06/27/17 09:12 Dose: 1 tab Naloxone HCl (Narcan) 0.1 mg IV Q2MIN PRN PRN Reason: Opiate Reversal Nitroglycerin (Nitrostat) 0.4 mg SL Q5M PRN PRN Reason: Chest Pain Ondansetron HCl (Zofran) 4 mg IV Q4HP PRN PRN Reason: Nausea And Vomiting Oxycodone/Acetaminophen (Percocet 5-325 Mg) 1 tab PO Q4HP PRN PRN Reason: Pain Last Admin: 06/27/17 14:29 Dose: 1 tab Budesonide/Formoterol Fumarate [Symbicort] 160-4.5 Mcg Inhaler 1 dose INH BID [facility] Last Admin: 06/27/17 09:06 Dose: Not Given Lurasidone Hcl [ (Latuda] 80 Mg Tab) 1 dose PO DAILY [facility] Last Admin: 06/27/17 09:06 Dose: Not Given Megestrol Acetate [ Megace Es] 625 Mg Cap 1 dose PO DAILY [facility] Last Admin: 06/27/17 09:06 Dose: Not Given Potassium Chloride (Klor-Con) 20 meq PO [facility] Last Admin: 06/27/17 09:12 Dose: 20 meq Ropinirole HCl (Requip) 3 mg PO DAILY [facility] Last Admin: 06/27/17 09:12 Dose: 3 mg Trazodone HCl (Desyrel) 300 mg PO [facility] Medical - PN: A/P - Time Spent With Patient Total time spent is greater than 50% in coordination of care (as documented) at patient's floor/unit and/or counseling patient: - Narrative A/P Narrative: A/P Acute on Chr Hyponatremia: sodium somewhat better this AM, recheck again. continue with very gentle hydration, consider fluid restriction/ tablets if sodium does not imrpove. ESRD on HD: Nephrology consult apprciated . Lung Cancer: This may be the underlying etiology for possible SIADH, for now will monitor , Get MRI head Hypercalcemia: Due to mets? vs Hyperparathyroidism, resume sensipar 90 as per nephrology DM start on sliding scale insulin HTN resume home meds as appropriate. monitor bp Bipolar disorder/ : On latuda, follows with [facility], not sure if this is the etiology of the oral tics? COPD: Patient to [place] while inpatient for now. Depression with Suicidal ideations: Denies same with me, did not endorse any such thoughts, patient seen by [facility] safety contract signed Leucocytosis: resolved DVT hep sq CARB RENAL DIET Medical - PN: Qual - VTE Deep Vein Thrombosis/Pulmonary Embolism Present on Admission: No
[2017-06-27 17:53] LABS: Blood Urea Nitrogen 32 mg/dl (8-23)
[2017-06-27] MEDS: SODIUM CHLORIDE 1 GM TABLET PO SCH (20:04)
[2017-06-27] MEDS: ATORVASTATIN 20 MG TABLET PO SCH (20:04)
[2017-06-27] MEDS: MIRTAZAPINE 15 MG TABLET PO SCH (20:04)
[2017-06-27] MEDS ORDERED: traZODone HCL 50 MG TABLET PO SCH (21:00)
[2017-06-27] MEDS ORDERED: traZODone HCL 150 MG TABLET PO SCH (21:00)
[2017-06-28] MEDS: IPRATROPIUM/ALBUTEROL 3 ML AMPUL.NEB NEB SCH ×6 (02:58→22:49)
[2017-06-28] MEDS: oxyCODONE/APAP 5/325MG TABLET PO PRN ×4 (05:10→21:53)
[2017-06-28 05:37] LABS: Basophils # (Auto) 0 K/mcL (0.0-0.3); Basophils % (Auto) 0.3 % (0.0-2.0); Eosinophils # (Auto) 0.1 K/mcL (0.0-0.7); Eosinophils % (Auto) 0.8 % (0.0-7.0); Granulocytes % (Auto) 81.2 % (38.0-78.0); Lymphocytes # (Auto) 0.8 K/mcL (1.5-4.8); Lymphocytes % (Auto) 8.6 % (15.5-49.0); Mean Cell Volume 96.5 fL (80.0-100.0); Mean Corpuscular HGB Conc 33.8 g/dL (31.0-36.0); Mean Corpuscular Hemoglobin 32.6 pg (26.0-34.0); Monocytes # (Auto) 0.8 K/mcL (0.1-0.9); Monocytes % (Auto) 9.1 % (1.0-12.0); Platelet Count 401 K/mcL (140-440); RBC 2.63 M/mcL (4.00-5.20); Red Cell Distribution Width 12.4 % (11.5-14.5)
[2017-06-28 06:02] LABS: ALT/SGPT 11 U/l (0-40); Albumin 3.9 gm/dL (3.2-5.2); Albumin/Globulin Ratio 1.5 (1.0-2.3); Alkaline Phosphatase 117 U/L (39-117); Bilirubin,Direct < 0.2 mg/dL (0.0-0.3); Blood Urea Nitrogen 34 mg/dl (8-23); Gamma Glutamyl Transpeptidase 30 U/L (5-36); Magnesium 2.7 mg/dL (1.6-2.5); Uric Acid 5.5 mg/dL (2.5-8.0)
[2017-06-28] MEDS: ISOSORBIDE DINITRATE 10 MG TABLET PO SCH ×3 (07:30→16:53)
[2017-06-28] MEDS: INSULIN LISPRO 1 UNIT/0.01 ML UNIT SQ SCH ×4 (07:30→20:12)
[2017-06-28] MEDS: POTASSIUM CHLORIDE 20 MEQ PACKET PO SCH (08:04)
[2017-06-28] MEDS: FOLIC ACID/VITAMIN B COMP W-C 1 TAB TABLET PO SCH (08:05)
[2017-06-28] MEDS: CLOPIDOGREL 75 MG TABLET PO SCH (08:05)
[2017-06-28] MEDS: CINACALCET 30 MG TABLET PO SCH (08:05)
[2017-06-28] MEDS: SODIUM CHLORIDE 1 GM TABLET PO SCH ×2 (08:08→20:11)
[2017-06-28] MEDS: rOPINIRole 1 MG TABLET PO SCH (08:08)
[2017-06-28] MEDS: HEPARIN 5,000 UNIT/ML VIAL SQ SCH ×2 (10:37→20:11)
[2017-06-28] MEDS: FLUTICASONE HFA 220MCG INHALER INH SCH ×2 (10:37→20:12)
[2017-06-28] MEDS: Budesonide/Formoterol Fumarate [Symbicort] 160-4.5 mcg Inhaler INH SCH ×2 (10:38→20:12)
[2017-06-28] MEDS: MEGESTROL ACETATE 625 MG PO SCH (10:38)
[2017-06-28] MEDS: LURASIDONE HCL 80 MG PO SCH (10:38)
[2017-06-28] MEDS ORDERED: PATIENTS OWN MEDICATION 1 DOSE MISCELL PO SCH (11:15)
--- NOTE | 2017-06-28 11:16 | Internal Med Progress Note ---
Medical - PN: Subj Patient information: Note initiated : 06/28/17 at 11:13 am Service Date, if different from initiated Date: [] Patient: Amanda Wetzel a 61 y/o F admitted on 06/26/17 for Chest Pain/Hyponatremia , Hypercalcemia. Chief Complaint: [] Interval history: Ms. Wetzel is a 61 year old Female with h/o bipolar disorder, esrd on hd, presents to the ER because of weakness and chest pains. Patient is a very poor historian and does not provide much history, Most of the information is obtained from chart review and discussing the case with ER and piano refinisher. Chest pain started yesterday and is retrosternal, not able to give any further details denies any chest pain. She also notes hurts all over and was weak. She admits to having poor intake and some nausea. But Denies any other complaints. The patient in the ER was evaluated further, noted to be hyponatremic with sodium of 123, bun 25, creat 2.7, ca 12.2, ionized 1.37. the patient has intermittent hyponatremia but last sodium wsa apparently > 130, the patient troponin was negative x 2, no acute ekg changes noted. X ray chest was neg, WBC elevated, ua was negative, procalcitonin indicative of low risk of infection. The patient also reported that she is suicidal in the ER, She was seen by [facility] and a contract was signed, according to the ER physician she was cleared from their end The patient was admitted to the hospital for further management. The patient has h/o lung cancer, s/p radiation, recurred, now being followed., h /o tertiary hyper calcemia is present. 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 polyuria June 27 patient seen examined, denies any acute complaints, but not able to communicate much with me. Case reviewed with nephrology plan to monitor sodium closely consider fluid restrictions and salt tablets if sodium does not continue to improve with hydration. hold vit d for hypercalcemia Check MRI brain without contrast for now, given esrd status, and h/o lung cancer to evaluaet etiology for Altered mental status. Jun 28 Patient seen examined, no new concerns or complaints, mental status somewhat better but still grossly confused Na 129 Planned MRI head for today. will need concious sedation patient megace to be cut back to 200mg qd, pt seems to be tolerating po diet well (etiology for oral dyskinesia) Patient stable to be x ferred to med surg status, will do this if remains stable after MRI head. Pertinent ROS: denies any complaints but not able to hold a decent conversation. - Constitutional Vitals: Vital Signs Temp Pulse Resp BP Pulse Ox 98.9 F 100 H 16 128/99 97 06/28/17 10:51 06/28/17 11:11 06/28/17 07:29 06/28/17 11:11 06/28/17 07:29 Period Temp Pulse Resp BP Sys/Craig Pulse Ox Last 24 Hr 96.8 F-98.9 F 97-107 16-24 100-152/54-102 95-98 Intake and Output 06/27/17 06/28/17 06/28/17 21:59 05:59 13:59 Intake Total 420 / 420 390 / 390 Output Total 650 / 650 850 / 850 Balance -230 / -230 -460 / -460 Weight 101 lb 9 oz Intake & Output: Intake & Output 06/27/17 06/28/17 06/28/17 21:59 05:59 13:59 Intake Total 420 / 420 390 / 390 Output Total 650 / 650 850 / 850 Balance -230 / -230 -460 / -460 Weight 101 lb 9 oz Intake: Oral 420 / 420 390 / 390 Output: Urine Catheter Amount 650 / 650 850 / 850 Other: Meal Nourishment/Supplement Percent of Meal Consumed 100% # Bowel Movements 1 Exam: Constitutional; Afebrile, cooperative, alert, not in distress. Eyes- No icterus, , No periorbital swelling Ears- Ext ear normal, Neck- Midline trachea, supple Respiratory system: Air Entry equal on both sides, No crackles or wheezing, no rhonchi. CVS- Rate rhythm regular, S1,S2 heard, no gallop, no rub. Abdomen- Soft nontender abdomen, no organomegaly, no tenderness, no guarding or rigidity, RIVET PASSER- AOOx1, moving all extremities, no gross focal deficit noted. perioral dyskiensia present. Medical - PN: Obj Da - Labs CBC & Chem 7: 06/28/17 04:02 06/28/17 04:02 Labs: Abnormal Lab Results 06/28/17 06/28/17 06/27/17 04:02 04:02 16:36 WBC RBC 2.63 L Hgb 8.6 L Hct 25.4 L POC Hct MPV 6.6 L Gran % 81.2 H Lymph % (Auto) 8.6 L Gran # Lymph # (Auto) 0.8 L [place] # (Auto) D-Dimer POC Sodium Sodium 129 L 126 L POC Chloride Chloride 88 L 85 L POC Total CO2 Anion Gap 17.0 H POC BUN BUN 34 H 32 H Creatinine 4.0 H 3.9 H POC Creatinine Glucose 145 H 115 H POC Glucose Osmolality Calcium 11.0 H 11.2 H POC WB Ioniz Calcium Magnesium 2.7 H Total Creatine Kinase CK-MB (CK-2) Myoglobin Urine Occult Blood 06/27/17 06/27/17 06/26/17 04:25 04:25 22:30 WBC RBC 2.70 L Hgb 8.9 L Hct 26.1 L POC Hct MPV 6.6 L Gran % 80.7 H Lymph % (Auto) 10.4 L Gran # Lymph # (Auto) 0.8 L [place] # (Auto) D-Dimer POC Sodium Sodium 126 L POC Chloride Chloride 84 L POC Total CO2 Anion Gap POC BUN BUN 28 H Creatinine 3.5 H POC Creatinine Glucose POC Glucose Osmolality 272 L Calcium 11.1 H POC WB Ioniz Calcium Magnesium 2.7 H Total Creatine Kinase CK-MB (CK-2) Myoglobin Urine Occult Blood 06/26/17 06/26/17 06/26/17 22:30 18:59 16:07 WBC RBC Hgb Hct POC Hct 30.0 L MPV Gran % Lymph % (Auto) Gran # Lymph # (Auto) [place] # (Auto) D-Dimer POC Sodium 121 L Sodium 123 L 123 L POC Chloride 79 L Chloride 79 L 77 L POC Total CO2 31 H Anion Gap 17.0 H POC BUN 25 H BUN 26 H 25 H Creatinine 3.2 H 2.7 H POC Creatinine 3.0 H Glucose 115 H 111 H POC Glucose 110 H Osmolality Calcium 12.0 H 12.2 H POC WB Ioniz Calcium 1.37 H Magnesium Total Creatine Kinase 188 H CK-MB (CK-2) 5.7 H Myoglobin 513 H Urine Occult Blood 0.03 A 06/26/17 06/26/17 16:07 16:07 WBC 14.5 H RBC 2.90 L Hgb 9.6 L Hct 28.0 L POC Hct MPV 6.3 L Gran % 82.7 H Lymph % (Auto) 7.3 L Gran # 12.0 H Lymph # (Auto) 1.1 L [place] # (Auto) 1.4 H D-Dimer 0.69 H POC Sodium Sodium POC Chloride Chloride POC Total CO2 Anion Gap POC BUN BUN Creatinine POC Creatinine Glucose POC Glucose Osmolality Calcium POC WB Ioniz Calcium Magnesium Total Creatine Kinase CK-MB (CK-2) Myoglobin Urine Occult Blood Meds: Medications Acetaminophen (Tylenol) 650 mg PO Q6HP PRN PRN Reason: PAIN/FEVER > 101 Albuterol/Ipratropium (Duoneb) 3 ml NEB Q4HRT [facility] Last Admin: 06/28/17 11:04 Dose: Not Given Atorvastatin Calcium (Lipitor) 40 mg PO HS [facility] Last Admin: 06/27/17 20:04 Dose: 40 mg Cinacalcet (Sensipar) 90 mg PO QAMCC [facility] Last Admin: 06/28/17 08:05 Dose: 90 mg Clopidogrel Bisulfate (Plavix) 75 mg PO DAILY [facility] Last Admin: 06/28/17 08:05 Dose: 75 mg Dextrose (Dextrose 50%) 0 ml IV UD PRN PRN Reason: Hypoglycemia Diagnostic Test (Pha) (Accu-Chek) 1 each FS [facility] Last Admin: 06/28/17 07:29 Dose: 1 each Fluticasone Propionate (Flovent Hfa 220mcg) 1 puff INH BID [facility] Last Admin: 06/28/17 10:37 Dose: Not Given Glucose (Insta-Glucose) 15 gm PO PRN PRN PRN Reason: Hypoglycemia Heparin Sodium (Porcine) (Heparin) 5,000 unit SQ Q12 [facility] Last Admin: 06/28/17 10:37 Dose: 5,000 unit Hydroxyzine HCl (Atarax) 25 mg PO HSP PRN PRN Reason: Sleep Last Admin: 06/27/17 20:05 Dose: 25 mg Insulin Human Lispro (Humalog) 0 unit SQ [facility] PRN Reason: Protocol Last Admin: 06/28/17 07:30 Dose: Not Given Isosorbide Dinitrate (Isordil) 5 mg PO TIDAC [facility] Last Admin: 06/28/17 07:30 Dose: 5 mg Mirtazapine (Remeron) 7.5 mg PO HS [facility] Last Admin: 06/27/17 20:04 Dose: 7.5 mg Multivit/Ca Carb/B Cmplx/FA/Prenat (Diatx) 1 tab PO DAILY [facility] Last Admin: 06/28/17 08:05 Dose: 1 tab Naloxone HCl (Narcan) 0.1 mg IV Q2MIN PRN PRN Reason: Opiate Reversal Nitroglycerin (Nitrostat) 0.4 mg SL Q5M PRN PRN Reason: Chest Pain Ondansetron HCl (Zofran) 4 mg IV Q4HP PRN PRN Reason: Nausea And Vomiting Oxycodone/Acetaminophen (Percocet 5-325 Mg) 1 tab PO Q4HP PRN PRN Reason: Pain Last Admin: 06/28/17 05:10 Dose: 1 tab Budesonide/Formoterol Fumarate [Symbicort] 160-4.5 Mcg Inhaler 1 dose INH BID [facility] Last Admin: 06/28/17 10:38 Dose: Not Given Lurasidone Hcl [ (Latuda] 80 Mg Tab) 1 dose PO DAILY [facility] Last Admin: 06/28/17 10:38 Dose: Not Given Megestrol Acetate [ Megace Es] 625 Mg Cap 1 dose PO DAILY [facility] Last Admin: 06/28/17 10:38 Dose: Not Given Potassium Chloride (Klor-Con) 20 meq PO [facility] Last Admin: 06/28/17 08:04 Dose: 20 meq Ropinirole HCl (Requip) 3 mg PO DAILY [facility] Last Admin: 06/28/17 08:08 Dose: 3 mg Sodium Chloride (Sodium Chloride) 1 gm PO BID [facility] Last Admin: 06/28/17 08:08 Dose: 1 gm Trazodone HCl (Desyrel) 100 mg PO [facility] Last Admin: 06/27/17 20:05 Dose: 100 mg Medical - PN: A/P - Time Spent With Patient Total time spent is greater than 50% in coordination of care (as documented) at patient's floor/unit and/or counseling patient: - Narrative A/P Narrative: A/P Acute on Chr Hyponatremia: sodium better today at 129, should resolve with HD on fluid restriction and salt tablets. . ESRD on HD: Nephrology consult apprciated . Lung Cancer: This may be the underlying etiology for possible SIADH, for now will monitor , Get MRI head Hypercalcemia: Due to mets? vs Hyperparathyroidism, resume sensipar 90 as per nephrology DM start on sliding scale insulin HTN resume home meds as appropriate. monitor bp Bipolar disorder/ : On latuda, follows with [facility], not sure if this is the etiology of the oral tics? on miratzipine, supposed to be off the trazodone, will wean rapidly over 3 days as the patient is already on mirtazipne. COPD: Patient to [employer] while inpatient for now. Depression with Suicidal ideations: Denies same with me, did not endorse any such thoughts, patient seen by [facility] safety contract signed Leucocytosis: resolved DVT hep sq CARB RENAL DIET Medical - PN: Qual - VTE Deep Vein Thrombosis/Pulmonary Embolism Present on Admission: No
[2017-06-28] MEDS: ATORVASTATIN 20 MG TABLET PO SCH (20:11)
[2017-06-28] MEDS: hydrOXYzine 25 MG TABLET PO PRN (20:11)
[2017-06-28] MEDS: MIRTAZAPINE 15 MG TABLET PO SCH (20:11)
[2017-06-28] MEDS ORDERED: traZODone HCL 50 MG TABLET PO SCH (21:00)
[2017-06-29] MEDS: IPRATROPIUM/ALBUTEROL 3 ML AMPUL.NEB NEB SCH ×3 (02:04→11:39)
[2017-06-29] MEDS: oxyCODONE/APAP 5/325MG TABLET PO PRN ×2 (02:47→21:06)
[2017-06-29 06:06] LABS: Basophils # (Auto) 0 K/mcL (0.0-0.3); Basophils % (Auto) 0.4 % (0.0-2.0); Eosinophils # (Auto) 0 K/mcL (0.0-0.7); Eosinophils % (Auto) 0.8 % (0.0-7.0); Granulocytes % (Auto) 71.9 % (38.0-78.0); Lymphocytes # (Auto) 0.8 K/mcL (1.5-4.8); Lymphocytes % (Auto) 13.7 % (15.5-49.0); Mean Cell Volume 96.5 fL (80.0-100.0); Mean Corpuscular HGB Conc 34.1 g/dL (31.0-36.0); Mean Corpuscular Hemoglobin 32.9 pg (26.0-34.0); Monocytes # (Auto) 0.8 K/mcL (0.1-0.9); Monocytes % (Auto) 13.2 % (1.0-12.0); Platelet Count 368 K/mcL (140-440); RBC 2.56 M/mcL (4.00-5.20); Red Cell Distribution Width 12.5 % (11.5-14.5)
[2017-06-29 06:15] LABS: ALT/SGPT 15 U/l (0-40); Albumin 3.8 gm/dL (3.2-5.2); Albumin/Globulin Ratio 1.5 (1.0-2.3); Alkaline Phosphatase 114 U/L (39-117); Bilirubin,Direct < 0.2 mg/dL (0.0-0.3); Blood Urea Nitrogen 14 mg/dl (8-23); Gamma Glutamyl Transpeptidase 50 U/L (5-36); Magnesium 2.2 mg/dL (1.6-2.5); Uric Acid 2.7 mg/dL (2.5-8.0)
[2017-06-29] MEDS ORDERED: MIDAZOLAM 2 MG/2 ML VIAL IV ONE (08:20)
[2017-06-29] MEDS ORDERED: fentaNYL 100 MCG/2 ML VIAL IV ONE (08:20)
[2017-06-29] MEDS ORDERED: MEGESTROL ACETATE 400 MG/10 ML ORAL.SUSP PO SCH (09:00)
--- NOTE | 2017-06-29 09:04 | Magnetic Resonance Report ---
CLINICAL INFORMATION: Altered mental status. History of lung cancer. TECHNIQUE: Sagittal, axial, coronal images through the brain. Intravenous contrast material was not administered as this patient is on dialysis. Conscious sedation was provided by members of the Department of anesthesia. COMPARISON: Brain CT scan dated 06/21/2017 FINDINGS: No restricted diffusion. No acute infarction. No susceptibility. No hemorrhagic abnormality. There is cerebral atrophy with prominent superficial subarachnoid spaces and prominent ventricles. There are scattered small foci of increased signal intensity in the white matter of both cerebral hemispheres. These are in a predominantly subcortical distribution. Appearance is not supplied. There is no vasogenic edema. No evidence for brain metastases. There is a focal white matter abnormality in the left cerebellar hemisphere. There is a small cystic abnormality in the left cerebellar peduncle. This is an incidental finding No extra-axial, intracranial abnormality. Normal flow void within vessels at the base of the brain. There is mild inflammatory change within paranasal sinuses. Skull base is negative IMPRESSION: 1. Cerebral atrophy 2. Mild nonspecific white matter abnormality. No evidence for intracranial metastasis. 3. No acute or focal abnormality. Interpreted and Authenticated by: Kushal Schroeder 06/29/17
[2017-06-29] MEDS: HEPARIN 5,000 UNIT/ML VIAL SQ SCH ×2 (09:19→20:25)
[2017-06-29] MEDS: INSULIN LISPRO 1 UNIT/0.01 ML UNIT SQ SCH ×4 (09:20→20:26)
[2017-06-29] MEDS: LURASIDONE HCL 80 MG PO SCH (09:23)
[2017-06-29] MEDS: Budesonide/Formoterol Fumarate [Symbicort] 160-4.5 mcg Inhaler INH SCH ×2 (09:23→20:27)
[2017-06-29] MEDS: rOPINIRole 1 MG TABLET PO SCH (09:39)
[2017-06-29] MEDS: CLOPIDOGREL 75 MG TABLET PO SCH (09:39)
[2017-06-29] MEDS: POTASSIUM CHLORIDE 20 MEQ PACKET PO SCH (09:39)
[2017-06-29] MEDS: SODIUM CHLORIDE 1 GM TABLET PO SCH ×2 (09:39→20:26)
[2017-06-29] MEDS: CINACALCET 30 MG TABLET PO SCH (09:39)
[2017-06-29] MEDS: FOLIC ACID/VITAMIN B COMP W-C 1 TAB TABLET PO SCH (09:39)
[2017-06-29] MEDS: ISOSORBIDE DINITRATE 10 MG TABLET PO SCH ×3 (09:40→18:02)
[2017-06-29] MEDS: FLUTICASONE HFA 220MCG INHALER INH SCH ×2 (10:00→20:26)
--- NOTE | 2017-06-29 10:26 | Internal Med Progress Note ---
Medical - PN: Subj Patient information: Note initiated : 06/29/17 at 10:18 am Service Date, if different from initiated Date: [] Patient: Amanda Wetzel a 61 y/o F admitted on 06/26/17 for Chest Pain/Hyponatremia , Hypercalcemia. Chief Complaint: [] Interval history: Ms. Wetzel is a 61 year old Female with h/o bipolar disorder, esrd on hd, presents to the ER because of weakness and chest pains. Patient is a very poor historian and does not provide much history, Most of the information is obtained from chart review and discussing the case with ER and cooperative education coordinator. Chest pain started yesterday and is retrosternal, not able to give any further details denies any chest pain. She also notes hurts all over and was weak. She admits to having poor intake and some nausea. But Denies any other complaints. The patient in the ER was evaluated further, noted to be hyponatremic with sodium of 123, bun 25, creat 2.7, ca 12.2, ionized 1.37. the patient has intermittent hyponatremia but last sodium wsa apparently > 130, the patient troponin was negative x 2, no acute ekg changes noted. X ray chest was neg, WBC elevated, ua was negative, procalcitonin indicative of low risk of infection. The patient also reported that she is suicidal in the ER, She was seen by [facility] and a contract was signed, according to the ER physician she was cleared from their end The patient was admitted to the hospital for further management. The patient has h/o lung cancer, s/p radiation, recurred, now being followed., h /o tertiary hyper calcemia is present. 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 polyuria June 27 patient seen examined, denies any acute complaints, but not able to communicate much with me. Case reviewed with nephrology plan to monitor sodium closely consider fluid restrictions and salt tablets if sodium does not continue to improve with hydration. hold vit d for hypercalcemia Check MRI brain without contrast for now, given esrd status, and h/o lung cancer to evaluaet etiology for Altered mental status. Jun 28 Patient seen examined, no new concerns or complaints, mental status somewhat better but still grossly confused Na 129 Planned MRI head for today. will need concious sedation patient megace to be cut back to 200mg qd, pt seems to be tolerating po diet well (etiology for oral dyskinesia) Patient stable to be x ferred to med surg status, will do this if remains stable after MRI head. Jun 29 Patient seen examined still confused, but had MRI this AM and is still under effects of sedation Pt otherwise had no acute events overnight MRI neg for any human resource officer mets, this is a non con study, but no gross mets were seen na better plan to wean off trazodone, last dose tonight STable for xfer to med surg Plan for Xfer to [facility] Pertinent ROS: unable. - Constitutional Vitals: Vital Signs Temp Pulse Resp BP Pulse Ox 97.6 F 99 H 16 116/53 98 06/29/17 05:19 06/29/17 08:10 06/29/17 08:10 06/29/17 08:49 06/29/17 08:49 Period Temp Pulse Resp BP Sys/Craig Pulse Ox Last 24 Hr 97.5 F-98.9 F 52-113 16-24 60-169/35-115 94-100 Intake and Output 06/28/17 06/29/17 06/29/17 21:59 05:59 13:59 Intake Total 890 / 890 100 / 100 Output Total 1000 / 1000 825 / 825 Balance -110 / -110 -725 / -725 Weight 105 lb 8 oz Intake & Output: Intake & Output 06/28/17 06/29/17 06/29/17 21:59 05:59 13:59 Intake Total 890 / 890 100 / 100 Output Total 1000 / 1000 825 / 825 Balance -110 / -110 -725 / -725 Weight 105 lb 8 oz Intake: Oral 890 / 890 100 / 100 Output: Urine Catheter Amount 1000 / 1000 825 / 825 Hemodialysis UF 0 / 0 Other: Meal Dinner Percent of Meal Consumed 75% Feeding Ability Independent # Bowel Movements 1 Exam: Constitutional; Afebrile, cooperative, drowsy, not in distress. Eyes- No icterus, , No periorbital swelling Ears- Ext ear normal, Neck- Midline trachea, supple Respiratory system: Air Entry equal on both sides, No crackles or wheezing, no rhonchi. CVS- Rate rhythm regular, S1,S2 heard, no gallop, no rub. Abdomen- Soft nontender abdomen, no organomegaly, no tenderness, no guarding or rigidity, TERRA COT[employer] SETTER- AOOx1, moving all extremities, no gross focal deficit noted. Medical - PN: Obj Da - Labs CBC & Chem 7: 06/29/17 03:30 06/29/17 03:30 Labs: Abnormal Lab Results 06/29/17 06/29/17 06/28/17 03:30 03:30 04:02 WBC RBC 2.56 L Hgb 8.4 L Hct 24.8 L POC Hct MPV 6.7 L Gran % Lymph % (Auto) 13.7 L [place] % (Auto) 13.2 H Gran # Lymph # (Auto) 0.8 L [place] # (Auto) D-Dimer POC Sodium Sodium 129 L POC Chloride Chloride 95 L 88 L POC Total CO2 Anion Gap POC BUN BUN 34 H Creatinine 2.5 H 4.0 H POC Creatinine Glucose 145 H POC Glucose Osmolality Calcium 11.0 H POC WB Ioniz Calcium Phosphorus 2.0 L Magnesium 2.7 H GGT 50 H Total Creatine Kinase CK-MB (CK-2) Myoglobin Urine Occult Blood 06/28/17 06/27/17 06/27/17 04:02 16:36 04:25 WBC RBC 2.63 L Hgb 8.6 L Hct 25.4 L POC Hct MPV 6.6 L Gran % 81.2 H Lymph % (Auto) 8.6 L [place] % (Auto) Gran # Lymph # (Auto) 0.8 L [place] # (Auto) D-Dimer POC Sodium Sodium 126 L 126 L POC Chloride Chloride 85 L 84 L POC Total CO2 Anion Gap 17.0 H POC BUN BUN 32 H 28 H Creatinine 3.9 H 3.5 H POC Creatinine Glucose 115 H POC Glucose Osmolality Calcium 11.2 H 11.1 H POC WB Ioniz Calcium Phosphorus Magnesium 2.7 H GGT Total Creatine Kinase CK-MB (CK-2) Myoglobin Urine Occult Blood 06/27/17 06/26/17 06/26/17 04:25 22:30 22:30 WBC RBC 2.70 L Hgb 8.9 L Hct 26.1 L POC Hct MPV 6.6 L Gran % 80.7 H Lymph % (Auto) 10.4 L [place] % (Auto) Gran # Lymph # (Auto) 0.8 L [place] # (Auto) D-Dimer POC Sodium Sodium 123 L POC Chloride Chloride 79 L POC Total CO2 Anion Gap 17.0 H POC BUN BUN 26 H Creatinine 3.2 H POC Creatinine Glucose 115 H POC Glucose Osmolality 272 L Calcium 12.0 H POC WB Ioniz Calcium Phosphorus Magnesium GGT Total Creatine Kinase CK-MB (CK-2) Myoglobin Urine Occult Blood 06/26/17 06/26/17 06/26/17 18:59 16:07 16:07 WBC RBC Hgb Hct POC Hct 30.0 L MPV Gran % Lymph % (Auto) [place] % (Auto) Gran # Lymph # (Auto) [place] # (Auto) D-Dimer 0.69 H POC Sodium 121 L Sodium 123 L POC Chloride 79 L Chloride 77 L POC Total CO2 31 H Anion Gap POC BUN 25 H BUN 25 H Creatinine 2.7 H POC Creatinine 3.0 H Glucose 111 H POC Glucose 110 H Osmolality Calcium 12.2 H POC WB Ioniz Calcium 1.37 H Phosphorus Magnesium GGT Total Creatine Kinase 188 H CK-MB (CK-2) 5.7 H Myoglobin 513 H Urine Occult Blood 0.03 A 06/26/17 16:07 WBC 14.5 H RBC 2.90 L Hgb 9.6 L Hct 28.0 L POC Hct MPV 6.3 L Gran % 82.7 H Lymph % (Auto) 7.3 L [place] % (Auto) Gran # 12.0 H Lymph # (Auto) 1.1 L [place] # (Auto) 1.4 H D-Dimer POC Sodium Sodium POC Chloride Chloride POC Total CO2 Anion Gap POC BUN BUN Creatinine POC Creatinine Glucose POC Glucose Osmolality Calcium POC WB Ioniz Calcium Phosphorus Magnesium GGT Total Creatine Kinase CK-MB (CK-2) Myoglobin Urine Occult Blood Meds: Medications Acetaminophen (Tylenol) 650 mg PO Q6HP PRN PRN Reason: PAIN/FEVER > 101 Albuterol/Ipratropium (Duoneb) 3 ml NEB Q4HRT [facility] Last Admin: 06/29/17 07:43 Dose: Not Given Atorvastatin Calcium (Lipitor) 40 mg PO [facility] Last Admin: 06/28/17 20:11 Dose: 40 mg [facility]ac[facility] ([facility]) [facility] Last Admin: 06/29/17 09:39 Dose: 90 mg Clopidogrel Bisulfate (Plavix) 75 mg PO DAILY [facility] Last Admin: 06/29/17 09:39 Dose: 75 mg Dextrose (Dextrose 50%) 0 ml IV UD PRN PRN Reason: Hypoglycemia Diagnostic Test (Pha) (Accu-Chek) 1 each FS ACHS [facility] Last Admin: 06/29/17 09:19 Dose: 1 each Fluticasone Propionate (Flovent Hfa 220mcg) 1 puff INH BID [facility] Last Admin: 06/29/17 10:00 Dose: Not Given Glucose (Insta-Glucose) 15 gm PO PRN PRN PRN Reason: Hypoglycemia Heparin Sodium (Porcine) (Heparin) 5,000 unit SQ Q12 [facility] Last Admin: 06/29/17 09:19 Dose: 5,000 unit Hydroxyzine HCl (Atarax) 25 mg PO HSP PRN PRN Reason: Sleep Last Admin: 06/28/17 20:11 Dose: 25 mg Insulin Human Lispro (Humalog) 0 unit SQ [facility] PRN Reason: Protocol Last Admin: 06/29/17 09:20 Dose: Not Given Isosorbide Dinitrate (Isordil) 5 mg PO TIDAC [facility] Last Admin: 06/29/17 09:40 Dose: 5 mg Megestrol Acetate (Megace) 200 mg PO DAILY [facility] Last Admin: 06/29/17 09:40 Dose: 200 mg Mirtazapine (Remeron) 7.5 mg PO HS [facility] Last Admin: 06/28/17 20:11 Dose: 7.5 mg Multivit/Ca Carb/B Cmplx/FA/Prenat (Diatx) 1 tab PO DAILY [facility] Last Admin: 06/29/17 09:39 Dose: 1 tab Naloxone HCl (Narcan) 0.1 mg IV Q2MIN PRN PRN Reason: Opiate Reversal Nitroglycerin (Nitrostat) 0.4 mg SL Q5M PRN PRN Reason: Chest Pain Ondansetron HCl (Zofran) 4 mg IV Q4HP PRN PRN Reason: Nausea And Vomiting Oxycodone/Acetaminophen (Percocet 5-325 Mg) 1 tab PO Q4HP PRN PRN Reason: Pain Last Admin: 06/29/17 02:47 Dose: 1 tab Budesonide/Formoterol Fumarate [Symbicort] 160-4.5 Mcg Inhaler 1 dose INH BID [facility] Last Admin: 06/29/17 09:23 Dose: Not Given Lurasidone Hcl [ (Latuda] 80 Mg Tab) 1 dose PO DAILY [facility] Last Admin: 06/29/17 09:23 Dose: Not Given Potassium Chloride (Klor-Con) 20 meq PO [facility] Last Admin: 06/29/17 09:39 Dose: 20 meq Ropinirole HCl (Requip) 3 mg PO DAILY [facility] Last Admin: 06/29/17 09:39 Dose: 3 mg Sodium Chloride (Sodium Chloride) 1 gm PO BID [facility] Last Admin: 06/29/17 09:39 Dose: 1 gm Trazodone HCl (Desyrel) 50 mg PO [facility] Stop: 06/29/17 21:01 Last Admin: 06/28/17 20:11 Dose: 50 mg Medical - PN: A/P - Time Spent With Patient Total time spent is greater than 50% in coordination of care (as documented) at patient's floor/unit and/or counseling patient: - Narrative A/P Narrative: A/P Acute on Chr Hyponatremia: sodium better today, had HD yesterday, on fluid restriction and salt tablets, nephrology following. . ESRD on HD: Nephrology consult apprciated . Lung Cancer: This may be the underlying etiology for possible SIADH, for now will monitor , Get MRI head Hypercalcemia: Due to mets? vs Hyperparathyroidism, resume sensipar 90 as per nephrology DM start on sliding scale insulin HTN resume home meds as appropriate. monitor bp Bipolar disorder/ : On latuda, follows with [facility], not sure if this is the etiology of the oral tics? on miratzipine, supposed to be off the trazodone, will wean rapidly last dose should be tonight, he is already on mirtazipne. COPD: Patient to [place] while inpatient for now. Depression with Suicidal ideations: Denies same with me, did not endorse any such thoughts, patient seen by [facility] safety contract signed Leucocytosis: resolved DVT hep sq CARB RENAL DIET Medical - PN: Qual - VTE Deep Vein Thrombosis/Pulmonary Embolism Present on Admission: No
[2017-06-29] MEDS ORDERED: NITROGLYCERIN 0.4 MG TAB.SUBL SL PRN (14:09)
[2017-06-29] MEDS ORDERED: ONDANSETRON 4 MG/2 ML VIAL IV PRN (14:09)
[2017-06-29] MEDS ORDERED: DEXTROSE 31 GM ORAL.SUSP PO PRN (14:09)
[2017-06-29] MEDS ORDERED: DEXTROSE 50% 50 ML VIAL IV PRN (14:09)
[2017-06-29] MEDS ORDERED: NALOXONE HCL 0.4 MG/ML VIAL IV PRN (14:09)
[2017-06-29] MEDS ORDERED: ACETAMINOPHEN 325 MG TABLET PO PRN (14:09)
[2017-06-29] MEDS ORDERED: hydrOXYzine 25 MG TABLET PO PRN (14:09)
[2017-06-29] MEDS ORDERED: IPRATROPIUM/ALBUTEROL 3 ML AMPUL.NEB NEB PRN (14:39)
[2017-06-29] MEDS ORDERED: IPRATROPIUM/ALBUTEROL 3 ML AMPUL.NEB NEB SCH (15:00)
[2017-06-29] MEDS ORDERED: PROMETHAZINE 25 MG/ML VIAL IV PRN (15:43)
[2017-06-29] MEDS ORDERED: METOCLOPRAMIDE 10 MG/2 ML VIAL IV PRN (15:50)
[2017-06-29] MEDS: MIRTAZAPINE 15 MG TABLET PO SCH (20:25)
[2017-06-29] MEDS: ATORVASTATIN 20 MG TABLET PO SCH (20:26)
[2017-06-29] MEDS ORDERED: traZODone HCL 50 MG TABLET PO SCH (21:00)
[2017-06-30] MEDS: oxyCODONE/APAP 5/325MG TABLET PO PRN (02:41)
[2017-06-30 05:37] LABS: Basophils # (Auto) 0 K/mcL (0.0-0.3); Basophils % (Auto) 0.7 % (0.0-2.0); Eosinophils # (Auto) 0.1 K/mcL (0.0-0.7); Eosinophils % (Auto) 2.2 % (0.0-7.0); Granulocytes % (Auto) 64.5 % (38.0-78.0); Lymphocytes # (Auto) 1.1 K/mcL (1.5-4.8); Lymphocytes % (Auto) 20.2 % (15.5-49.0); Mean Cell Volume 98.3 fL (80.0-100.0); Mean Corpuscular HGB Conc 33.5 g/dL (31.0-36.0); Mean Corpuscular Hemoglobin 32.9 pg (26.0-34.0); Monocytes # (Auto) 0.7 K/mcL (0.1-0.9); Monocytes % (Auto) 12.4 % (1.0-12.0); Platelet Count 356 K/mcL (140-440); RBC 2.57 M/mcL (4.00-5.20); Red Cell Distribution Width 13.4 % (11.5-14.5)
[2017-06-30 06:39] LABS: ALT/SGPT 96 U/l (0-40); Albumin 3.8 gm/dL (3.2-5.2); Albumin/Globulin Ratio 1.5 (1.0-2.3); Alkaline Phosphatase 237 U/L (39-117); Bilirubin,Direct < 0.2 mg/dL (0.0-0.3); Blood Urea Nitrogen 21 mg/dl (8-23); Gamma Glutamyl Transpeptidase 329 U/L (5-36); Magnesium 2.4 mg/dL (1.6-2.5); Uric Acid 4.9 mg/dL (2.5-8.0)
[2017-06-30] MEDS: INSULIN LISPRO 1 UNIT/0.01 ML UNIT SQ SCH ×2 (08:25→11:16)
[2017-06-30] MEDS: POTASSIUM CHLORIDE 20 MEQ PACKET PO SCH (08:59)
[2017-06-30] MEDS: CLOPIDOGREL 75 MG TABLET PO SCH (08:59)
[2017-06-30] MEDS: HEPARIN 5,000 UNIT/ML VIAL SQ SCH ×2 (08:59→20:32)
[2017-06-30] MEDS: ISOSORBIDE DINITRATE 10 MG TABLET PO SCH ×3 (09:00→17:19)
[2017-06-30] MEDS: rOPINIRole 1 MG TABLET PO SCH (09:07)
[2017-06-30] MEDS: FOLIC ACID/VITAMIN B COMP W-C 1 TAB TABLET PO SCH (09:08)
[2017-06-30] MEDS: CINACALCET 30 MG TABLET PO SCH (09:09)
[2017-06-30] MEDS: SODIUM CHLORIDE 1 GM TABLET PO SCH ×2 (09:09→20:31)
--- NOTE | 2017-06-30 09:24 | Ultrasound Report ---
CLINICAL INFORMATION: Elevated liver function tests TECHNIQUE: Grayscale and color flow Doppler spectral imaging COMPARISON: None. FINDINGS: Previous cholecystectomy. No dilated intrahepatic bile ducts. Common bile duct is prominent measures approximately 8 mm. This is probably within normal limits in this postcholecystectomy patient. No detectable choledocholithiasis. Liver measures 11.7 cm maximally. Mildly echogenic liver parenchyma. No focal mass. Liver contour is smooth. No evidence for cirrhosis. No ascites. Visualized portions of the pancreas are negative. Normal hepatopedal portal venous flow IMPRESSION: 1. Previous cholecystectomy. Prominent common bile duct without intrahepatic bile duct dilatation 2. Mildly echogenic liver may be secondary to hepatic steatosis. No focal abnormality. Interpreted and Authenticated by: Kushal Schroeder 06/30/17
[2017-06-30] MEDS: Budesonide/Formoterol Fumarate [Symbicort] 160-4.5 mcg Inhaler INH SCH ×2 (09:50→20:32)
[2017-06-30] MEDS: FLUTICASONE HFA 220MCG INHALER INH SCH ×2 (09:50→20:32)
[2017-06-30] MEDS: MEGESTROL ACETATE 400 MG/10 ML ORAL.SUSP PO SCH (09:52)
[2017-06-30] MEDS: LURASIDONE HCL 80 MG PO SCH (09:52)
--- NOTE | 2017-06-30 12:15 | Internal Med Progress Note ---
Medical - PN: Subj Patient information: Note initiated : 06/30/17 at 12:12 pm Service Date, if different from initiated Date: [] Patient: Amanda Wetzel a 61 y/o F admitted on 06/26/17 for Chest Pain/Hyponatremia , Hypercalcemia. Chief Complaint: [] Interval history: Ms. Wetzel is a 61 year old Female with h/o bipolar disorder, esrd on hd, presents to the ER because of weakness and chest pains. Patient is a very poor historian and does not provide much history, Most of the information is obtained from chart review and discussing the case with ER and regulatory affairs director. Chest pain started yesterday and is retrosternal, not able to give any further details denies any chest pain. She also notes hurts all over and was weak. She admits to having poor intake and some nausea. But Denies any other complaints. The patient in the ER was evaluated further, noted to be hyponatremic with sodium of 123, bun 25, creat 2.7, ca 12.2, ionized 1.37. the patient has intermittent hyponatremia but last sodium wsa apparently > 130, the patient troponin was negative x 2, no acute ekg changes noted. X ray chest was neg, WBC elevated, ua was negative, procalcitonin indicative of low risk of infection. The patient also reported that she is suicidal in the ER, She was seen by [facility] and a contract was signed, according to the ER physician she was cleared from their end The patient was admitted to the hospital for further management. The patient has h/o lung cancer, s/p radiation, recurred, now being followed., h /o tertiary hyper calcemia is present. 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 polyuria June 27 patient seen examined, denies any acute complaints, but not able to communicate much with me. Case reviewed with nephrology plan to monitor sodium closely consider fluid restrictions and salt tablets if sodium does not continue to improve with hydration. hold vit d for hypercalcemia Check MRI brain without contrast for now, given esrd status, and h/o lung cancer to evaluaet etiology for Altered mental status. Jun 28 Patient seen examined, no new concerns or complaints, mental status somewhat better but still grossly confused Na 129 Planned MRI head for today. will need concious sedation patient megace to be cut back to 200mg qd, pt seems to be tolerating po diet well (etiology for oral dyskinesia) Patient stable to be x ferred to med surg status, will do this if remains stable after MRI head. Jun 29 Patient seen examined still confused, but had MRI this AM and is still under effects of sedation Pt otherwise had no acute events overnight MRI neg for any stereotyper helper mets, this is a non con study, but no gross mets were seen na better plan to wean off trazodone, last dose tonight STable for xfer to med surg Plan for Xfer to [place] Jun 30 Intractable n/v after returning from MRI yesterday. Has elevation of LFTs today but no abdominal pain. Abd US done and is unremarkable. MRI neg for met. Just showed cerebral atrophy. She is restless 2/2 her back pain. Will adjust meds today. Seems less confused today. Seen with Dr. Sanford who confirms. Interaction is often limited by her difficulty hearing; she does not have hearing aids. Pertinent ROS: no fever, cp, abd pain, n/v. - Constitutional Vitals: Vital Signs Temp Pulse Resp BP Pulse Ox 98.3 F 56 L 16 92/55 100 06/30/17 08:00 06/30/17 08:00 06/30/17 08:00 06/30/17 08:00 06/30/17 08:00 Period Temp Pulse Resp BP Sys/Craig Pulse Ox Last 24 Hr 96.8 F-98.9 F 56-105 16-18 92-142/47-88 90-100 Intake and Output 06/29/17 06/30/17 06/30/17 21:59 05:59 13:59 Intake Total 600 / 600 360 / 360 Output Total 900 / 900 500 / 500 Balance -300 / -300 -140 / -140 Weight 100 lb 2 oz Intake & Output: Intake & Output 06/29/17 06/30/17 06/30/17 21:59 05:59 13:59 Intake Total 600 / 600 360 / 360 Output Total 900 / 900 500 / 500 Balance -300 / -300 -140 / -140 Weight 100 lb 2 oz Intake: Oral 600 / 600 360 / 360 Output: Urine Catheter Amount 900 / 900 500 / 500 Other: Meal Dinner Percent of Meal Consumed 50% Feeding Ability Assist with Tray Set Up # Bowel Movements 0 Gen: NAD, sitting up in chair HEENT: involuntary, constant tongue movements Resp: CTAB, low WOB CV: RRR. No m/r/g Abd: soft/nd/nt. +BT Ext: No c/c/e NRO: Alert and conversant. Wants to eat. Difficult to obtain hx d/t [place]. No focal deficits Medical - PN: Obj Da - Labs CBC & Chem 7: 06/30/17 03:35 06/30/17 03:35 Labs: Abnormal Lab Results 06/30/17 06/30/17 06/29/17 03:35 03:35 03:30 RBC 2.57 L Hgb 8.4 L Hct 25.2 L MPV 6.8 L Gran % Lymph % (Auto) [place] % (Auto) 12.4 H Lymph # (Auto) 1.1 L Sodium Chloride 95 L Anion Gap BUN Creatinine 3.7 H 2.5 H Glucose Calcium Phosphorus 2.0 L Magnesium GGT 329 H 50 H AST 79 H ALT 96 H Alkaline Phosphatase 237 H 06/29/17 06/28/17 06/28/17 03:30 04:02 04:02 RBC 2.56 L 2.63 L Hgb 8.4 L 8.6 L Hct 24.8 L 25.4 L MPV 6.7 L 6.6 L Gran % 81.2 H Lymph % (Auto) 13.7 L 8.6 L [place] % (Auto) 13.2 H Lymph # (Auto) 0.8 L 0.8 L Sodium 129 L Chloride 88 L Anion Gap BUN 34 H Creatinine 4.0 H Glucose 145 H Calcium 11.0 H Phosphorus Magnesium 2.7 H GGT AST ALT Alkaline Phosphatase 06/27/17 16:36 RBC Hgb Hct MPV Gran % Lymph % (Auto) [place] % (Auto) Lymph # (Auto) Sodium 126 L Chloride 85 L Anion Gap 17.0 H BUN 32 H Creatinine 3.9 H Glucose 115 H Calcium 11.2 H Phosphorus Magnesium GGT AST ALT Alkaline Phosphatase Meds: Medications Acetaminophen (Tylenol) 650 mg PO Q6HP PRN PRN Reason: PAIN/FEVER > 101 Albuterol/Ipratropium (Duoneb) 3 ml NEB Q4HP PRN PRN Reason: Shortness Of Breath Atorvastatin Calcium (Lipitor) 40 mg PO [facility] Last Admin: 06/29/17 20:26 Dose: 40 mg Cinacalcet (Sensipar) 90 mg PO [facility] Last Admin: 06/30/17 09:09 Dose: 90 mg Clopidogrel Bisulfate (Plavix) 75 mg PO DAILY [facility] Last Admin: 06/30/17 08:59 Dose: 75 mg Dextrose (Dextrose 50%) 0 ml IV UD PRN PRN Reason: Hypoglycemia Diagnostic Test (Pha) (Accu-Chek) 1 each FS ACHS [facility] Last Admin: 06/30/17 11:15 Dose: 1 each Fluticasone Propionate (Flovent Hfa 220mcg) 1 puff INH BID [facility] Last Admin: 06/30/17 09:50 Dose: Not Given Glucose (Insta-Glucose) 15 gm PO PRN PRN PRN Reason: Hypoglycemia Heparin Sodium (Porcine) (Heparin) 5,000 unit SQ Q12 [facility] Last Admin: 06/30/17 08:59 Dose: 5,000 unit Hydroxyzine HCl (Atarax) 25 mg PO HSP PRN PRN Reason: Sleep Insulin Human Lispro (Humalog) 0 unit SQ [facility] PRN Reason: Protocol Last Admin: 06/30/17 11:16 Dose: Not Given Isosorbide Dinitrate (Isordil) 5 mg PO TIDAC [facility] Last Admin: 06/30/17 11:16 Dose: 5 mg Megestrol Acetate (Megace) 200 mg PO DAILY [facility] Last Admin: 06/30/17 09:52 Dose: 200 mg Metoclopramide HCl (Reglan) 10 mg IV Q6HP PRN PRN Reason: Nausea And Vomiting Last Admin: 06/29/17 15:59 Dose: 10 mg Mirtazapine (Remeron) 7.5 mg PO HS [facility] Last Admin: 06/29/17 20:25 Dose: 7.5 mg Multivit/Ca Carb/B Cmplx/FA/Prenat (Diatx) 1 tab PO DAILY [facility] Last Admin: 06/30/17 09:08 Dose: 1 tab Naloxone HCl (Narcan) 0.1 mg IV Q2MIN PRN PRN Reason: Opiate Reversal Nitroglycerin (Nitrostat) 0.4 mg SL Q5M PRN PRN Reason: Chest Pain Ondansetron HCl (Zofran) 4 mg IV Q4HP PRN PRN Reason: Nausea And Vomiting Last Admin: 06/30/17 08:55 Dose: 4 mg Oxycodone/Acetaminophen (Percocet 5-325 Mg) 1 tab PO Q4HP PRN PRN Reason: Pain Last Admin: 06/30/17 02:41 Dose: 1 tab Budesonide/Formoterol Fumarate [Symbicort] 160-4.5 Mcg Inhaler 1 dose INH BID [facility] Last Admin: 06/30/17 09:50 Dose: Not Given Lurasidone Hcl [ (Latuda] 80 Mg Tab) 1 dose PO DAILY [facility] Last Admin: 06/30/17 09:52 Dose: Not Given Potassium Chloride (Klor-Con) 20 meq PO [facility] Last Admin: 06/30/17 08:59 Dose: 20 meq Promethazine HCl (Phenergan) 12.5 mg IV Q4-6HP PRN PRN Reason: Nausea And Vomiting Ropinirole HCl (Requip) 3 mg PO DAILY [facility] Last Admin: 06/30/17 09:07 Dose: 3 mg Sodium Chloride (Sodium Chloride) 1 gm PO BID [facility] Last Admin: 06/30/17 09:09 Dose: 1 gm Medical - PN: A/P - Time Spent With Patient Total time spent is greater than 50% in coordination of care (as documented) at patient's floor/unit and/or counseling patient: Greater than 35 minutes - Narrative A/P Narrative: A/P Acute on Chr Hyponatremia: [place] Na 123. Completely resolved now at 139. Likely multifactorial, initially w hypovolemia and then had component of SIADH (2/2 back pain. Cont HD, FR of 1.5L and salt tablets, nephrology following. Acute encephalopathy, multifactorial and now improving -polypharmacy--see bipolar d/o assessment -hyponatremia, improved -difficulty hearing--does not have hearing aids -hypercalcemia, improved Elevated LFTs w N/v -no abdominal pain. US neg. Will trend LFTs ESRD on HD: HD T Sat. Nephrology consult appreciated. On renal diet Lung Cancer: MRI neg for brain met. s/p XRT; now being monitored as OP Chronic back pain: on Percocet here. Will add lidocaine patch. Dr. Sanford will manage opiates as OP. Hypercalcemia: Hyperparathyroidism, cont sensipar 90 as per nephrology DM: On SSI. Not needing BG coverage. Will DC SSI. Cont ADA diet. HTN: Home regimen: Imdur. Cont'd here. Monitor BPs as slightly soft. Bipolar disorder: On latuda, follows with [facility]. Oral tics likely 2/2 antipsychotic use. DC Reglan started for nausea 06/29. Weaned off trazodone as recommended as OP, now on Latuda, mirtazapine. Home Megace decreased from 625mg-->200mg QD as can worsen depression. Will ask [facility] to re- evaluate. Will need close F/U as OP. COPD: Cont budesonide nebs +PRN duonebs. Depression with Suicidal ideations: Currently denies; was evaluated by Q. Leucocytosis: resolved DVT hep sq Code: Full Dispo: pending improvement in LFTs. Ready for SNF in 1-2 days. Medical - PN: Qual - VTE Deep Vein Thrombosis/Pulmonary Embolism Present on Admission: No
[2017-06-30] MEDS: LIDOCAINE PATCH TOPICAL SCH (13:11)
--- NOTE | 2017-06-30 16:36 | Nephrology Progress Note ---
Subjective Patient information: Note initiated : 06/30/17 at 4:34 pm Service Date, if different from initiated Date: [] Patient: Amanda Wetzel 61 y/o F admitted on 06/26/17 for Chest Pain/Hyponatremia , Hypercalcemia. Chief Complaint: [] Principal diagnosis: AMS Interval history: Patient is more alert today she is also communicating more, especially in presence of her she c/o difficulty hearing she also c/o severe back pain and inability to get pain meds she denies any other complaints, no nausea, vomiting, abdominal pain she does have elevation in her liver enzymes today which is new Pertinent ROS: as above Objective - Vital Signs Vital signs: Vital Signs Temp Pulse Pulse Pulse Resp BP BP 06/30/17 16:20 44 L 109/62 06/30/17 15:54 54 L 140/88 06/30/17 15:25 59 L 143/83 06/30/17 15:00 97.1 F 97 H 127/76 06/30/17 12:00 98.5 F 16 94/55 06/30/17 08:00 98.3 F 56 L 16 92/55 06/30/17 04:00 98.0 F 88 18 105/62 06/29/17 23:26 96.8 F L 104 H 18 92/47 06/29/17 20:00 98.6 F 98 H 16 95/67 Pulse Ox 06/30/17 16:20 06/30/17 15:54 06/30/17 15:25 06/30/17 15:00 06/30/17 12:00 99 06/30/17 08:00 100 06/30/17 04:00 97 06/29/17 23:26 99 06/29/17 20:00 95 Intake and Output 06/30/17 06/30/17 06/30/17 05:59 13:59 21:59 Intake Total 360 / 360 240 / 240 Output Total 500 / 500 300 / 300 Balance -140 / -140 240 / 240 -300 / -300 Intake: Oral 360 / 360 240 / 240 Output: Urine Catheter Amount 500 / 500 Void Amount 300 / 300 Other: Meal Lunch Percent of Meal Consumed 25% Feeding Ability Assist with Tray Set Up # Bowel Movements 0 Intake & Output: Intake & Output 11/15/17 11/15/17 11/15/17 05:59 13:59 21:59 Intake Total 360 / 360 240 / 240 Output Total 500 / 500 300 / 300 Balance -140 / -140 240 / 240 -300 / -300 Intake: Oral 360 / 360 240 / 240 Output: Urine Catheter Amount 500 / 500 Void Amount 300 / 300 Other: Meal Lunch Percent of Meal Consumed 25% Feeding Ability Assist with Tray Set Up # Bowel Movements 0 - General Appearance General appearance: appears started age, cachectic, chronically ill EENT: mucous membranes moist Neck: no JVD Respiratory: clear Cardiology: no rub, no edema, normal S1, normal S2 Gastrointestinal: no tenderness, no guarding Integumentary: warm and dry Neurologic: alert and oriented x3 Musculoskeletal: no erythema, no cyanosis - Lab 06/30/17 03:35 06/30/17 03:35 Most recent lab results Calcium 10.2 mg/dl (8.6-10.4) 06/30/17 03:35 Phosphorus 2.7 mg/dL (2.7-4.5) 06/30/17 03:35 Magnesium 2.4 mg/dL (1.6-2.5) 06/30/17 03:35 Assessment and Plan (1) Hyponatremia Status: Acute (2) Hypercalcemia Status: Acute (3) ESRD (end stage renal disease) on dialysis hyponatremia resolved, calcium level trending down AMS: improving mental status at present likely related to her underlying psychiatric issues and meds, MRI brain negative though understand it is non contrast study ESRD: Had discussion regarding goals of care including if patient and her wants her to continue dialysis she has requested to shorten to run time to see if it helps and also help with pain management given this I will try dialysing her for 3 hrs 3 times a week, she is very thin built and I am hoping we achieve good clearance with this She will be dialysed today for 3 hrs using revaclear 400 dialyser, QB 400ML/MIN , QD 800MLMIN, 3K/2.5Ca dialysate, no UF removal, sodium of 135 we will changer her outpt orders she will benefit from rehab, her does not think he can take care of her at home so we will work on placement and also try and arrange an outpt psychiatry follow up and ENT eval for hearing test as she is very hard of hearing Will follow along appreciate hospitalist help in managing this patient Status: Chronic Comment: 08/27/2015Tony
[2017-06-30] MEDS: ATORVASTATIN 20 MG TABLET PO SCH (20:31)
[2017-06-30] MEDS: MIRTAZAPINE 15 MG TABLET PO SCH (20:32)
[2017-07-01] MEDS: oxyCODONE/APAP 5/325MG TABLET PO PRN ×5 (00:13→23:20)
[2017-07-01 05:51] LABS: Basophils # (Auto) 0 K/mcL (0.0-0.3); Basophils % (Auto) 0.7 % (0.0-2.0); Eosinophils # (Auto) 0.1 K/mcL (0.0-0.7); Granulocytes % (Auto) 68.7 % (38.0-78.0); Lymphocytes % (Auto) 16.4 % (15.5-49.0); Mean Cell Volume 97.4 fL (80.0-100.0); Mean Corpuscular HGB Conc 33.9 g/dL (31.0-36.0); Mean Corpuscular Hemoglobin 33.1 pg (26.0-34.0); Monocytes # (Auto) 0.8 K/mcL (0.1-0.9); Monocytes % (Auto) 12.2 % (1.0-12.0); Platelet Count 384 K/mcL (140-440); RBC 2.64 M/mcL (4.00-5.20); Red Cell Distribution Width 13.1 % (11.5-14.5)
[2017-07-01 06:07] LABS: ALT/SGPT 69 U/l (0-40); Albumin/Globulin Ratio 1.3 (1.0-2.3); Alkaline Phosphatase 221 U/L (39-117); Bilirubin,Direct < 0.2 mg/dL (0.0-0.3); Blood Urea Nitrogen 8 mg/dl (8-23); Gamma Glutamyl Transpeptidase 284 U/L (5-36); Magnesium 2.2 mg/dL (1.6-2.5); Uric Acid 2.3 mg/dL (2.5-8.0)
[2017-07-01] MEDS: CINACALCET 30 MG TABLET PO SCH (07:52)
[2017-07-01] MEDS: ISOSORBIDE DINITRATE 10 MG TABLET PO SCH ×3 (07:52→15:55)
[2017-07-01] MEDS: POTASSIUM CHLORIDE 20 MEQ PACKET PO SCH (07:52)
[2017-07-01] MEDS: LIDOCAINE PATCH TOPICAL SCH (11:05)
[2017-07-01] MEDS: HEPARIN 5,000 UNIT/ML VIAL SQ SCH ×2 (11:05→20:36)
[2017-07-01] MEDS: rOPINIRole 1 MG TABLET PO SCH (11:05)
[2017-07-01] MEDS: SODIUM CHLORIDE 1 GM TABLET PO SCH ×2 (11:06→20:37)
[2017-07-01] MEDS: NEUTRA PHOS 1 PACKET PO SCH ×3 (11:06→20:36)
[2017-07-01] MEDS: CLOPIDOGREL 75 MG TABLET PO SCH (11:06)
[2017-07-01] MEDS: FOLIC ACID/VITAMIN B COMP W-C 1 TAB TABLET PO SCH (11:06)
[2017-07-01] MEDS: MEGESTROL ACETATE 400 MG/10 ML ORAL.SUSP PO SCH (11:07)
[2017-07-01] MEDS: Budesonide/Formoterol Fumarate [Symbicort] 160-4.5 mcg Inhaler INH SCH ×2 (11:08→23:16)
[2017-07-01] MEDS: LURASIDONE HCL 80 MG PO SCH (11:08)
[2017-07-01] MEDS: FLUTICASONE HFA 220MCG INHALER INH SCH (11:08)
--- NOTE | 2017-07-01 16:53 | Internal Med Progress Note ---
Medical - PN: Subj Patient information: Note initiated : 07/01/17 at 4:50 pm Service Date, if different from initiated Date: [] Patient: Amanda Wetzel a 61 y/o F admitted on 06/26/17 for Chest Pain/Hyponatremia , Hypercalcemia. Chief Complaint: [] Interval history: Ms. Wetzel is a 61 year old Female with h/o bipolar disorder, esrd on hd, presents to the ER because of weakness and chest pains. Patient is a very poor historian and does not provide much history, Most of the information is obtained from chart review and discussing the case with ER and web art director. Chest pain started yesterday and is retrosternal, not able to give any further details denies any chest pain. She also notes hurts all over and was weak. She admits to having poor intake and some nausea. But Denies any other complaints. The patient in the ER was evaluated further, noted to be hyponatremic with sodium of 123, bun 25, creat 2.7, ca 12.2, ionized 1.37. the patient has intermittent hyponatremia but last sodium wsa apparently > 130, the patient troponin was negative x 2, no acute ekg changes noted. X ray chest was neg, WBC elevated, ua was negative, procalcitonin indicative of low risk of infection. The patient also reported that she is suicidal in the ER, She was seen by [facility] and a contract was signed, according to the ER physician she was cleared from their end The patient was admitted to the hospital for further management. The patient has h/o lung cancer, s/p radiation, recurred, now being followed., h /o tertiary hyper calcemia is present. 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 polyuria June 27 patient seen examined, denies any acute complaints, but not able to communicate much with me. Case reviewed with nephrology plan to monitor sodium closely consider fluid restrictions and salt tablets if sodium does not continue to improve with hydration. hold vit d for hypercalcemia Check MRI brain without contrast for now, given esrd status, and h/o lung cancer to evaluaet etiology for Altered mental status. Jun 28 Patient seen examined, no new concerns or complaints, mental status somewhat better but still grossly confused Na 129 Planned MRI head for today. will need concious sedation patient megace to be cut back to 200mg qd, pt seems to be tolerating po diet well (etiology for oral dyskinesia) Patient stable to be x ferred to med surg status, will do this if remains stable after MRI head. Jun 29 Patient seen examined still confused, but had MRI this AM and is still under effects of sedation Pt otherwise had no acute events overnight MRI neg for any technician assistant mets, this is a non con study, but no gross mets were seen na better plan to wean off trazodone, last dose tonight STable for xfer to med surg Plan for Xfer to [place] Jun 30 Intractable n/v after returning from MRI yesterday. Has elevation of LFTs today but no abdominal pain. Abd US done and is unremarkable. MRI neg for met. Just showed cerebral atrophy. She is restless 2/2 her back pain. Will adjust meds today. Seems less confused today. Seen with Dr. Sanford who confirms. Interaction is often limited by her difficulty hearing; she does not have hearing aids. Jul 01 More alert and conversant today. Still answering in 1-3 word answers and at times needs question repeated. States yesterday was a good day "because I got to see my ". Lower back pain improved with lidocaine patch. Seen by NEUROPSYCHIATRIC AIDE and is having regurgitation; will have her seen after f/u for EGD and possible dilatation. feels he can take her home tomorrow. Will DC after HD. ROS: no fever or nausea - Constitutional Vitals: Vital Signs Temp Pulse Resp BP Pulse Ox 98.4 F 82 16 128/62 95 07/01/17 16:00 07/01/17 16:00 07/01/17 16:00 07/01/17 16:00 07/01/17 16:00 Period Temp Pulse Resp BP Sys/Craig Pulse Ox Last 24 Hr 97.1 F-98.4 F 45-108 16-24 84-128/52-72 91-100 Intake and Output 07/01/17 07/01/17 07/01/17 05:59 13:59 21:59 Intake Total 225 / 225 240 / 240 250 / 250 Output Total 100 / 100 450 / 450 Balance 225 / 225 140 / 140 -200 / -200 Weight 100 lb 12.8 oz Patient Weight 07/02/17 05:59 Weight 100 lb 12.8 oz Intake & Output: Intake & Output 07/01/17 07/01/17 07/01/17 05:59 13:59 21:59 Intake Total 225 / 225 240 / 240 250 / 250 Output Total 100 / 100 450 / 450 Balance 225 / 225 140 / 140 -200 / -200 Weight 100 lb 12.8 oz Intake: Oral 225 / 225 240 / 240 250 / 250 Output: Void Amount 100 / 100 450 / 450 Other: Meal Breakfast Percent of Meal Consumed 75% Feeding Ability Assist with Tray Set Up # Voids 1 # Bowel Movements 1 Gen: NAD, sitting up in bed HEENT: involuntary, constant tongue movements Resp: CTAB, low WOB CV: RRR. No m/r/g Abd: soft/nd/nt. +BT Ext: No c/c/e NRO: Alert and conversant. [place]. No focal deficits Medical - PN: Obj Da - Labs CBC & Chem 7: 07/01/17 04:10 07/01/17 04:10 Labs: Abnormal Lab Results 07/01/17 07/01/17 06/30/17 04:10 04:10 03:35 RBC 2.64 L Hgb 8.7 L Hct 25.7 L MPV 6.6 L Lymph % (Auto) [place] % (Auto) 12.2 H Lymph # (Auto) 1.0 L Chloride Creatinine 2.0 H 3.7 H Uric Acid 2.3 L Phosphorus 1.9 L GGT 284 H 329 H AST 38 H 79 H ALT 69 H 96 H Alkaline Phosphatase 221 H 237 H 06/30/17 06/29/17 06/29/17 03:35 03:30 03:30 RBC 2.57 L 2.56 L Hgb 8.4 L 8.4 L Hct 25.2 L 24.8 L MPV 6.8 L 6.7 L Lymph % (Auto) 13.7 L [place] % (Auto) 12.4 H 13.2 H Lymph # (Auto) 1.1 L 0.8 L Chloride 95 L Creatinine 2.5 H Uric Acid Phosphorus 2.0 L GGT 50 H AST ALT Alkaline Phosphatase Meds: Medications Acetaminophen (Tylenol) 650 mg PO Q6HP PRN PRN Reason: PAIN/FEVER > 101 Albuterol/Ipratropium (Duoneb) 3 ml NEB Q4HP PRN PRN Reason: Shortness Of Breath Atorvastatin Calcium (Lipitor) 40 mg PO HS [facility] Last Admin: 06/30/17 20:31 Dose: 40 mg Cinacalcet (Sensipar) 90 mg [facility] Last Admin: 07/01/17 07:52 Dose: 90 mg Clopidogrel Bisulfate (Plavix) 75 mg PO DAILY [facility] Last Admin: 07/01/17 11:06 Dose: 75 mg Dextrose (Dextrose 50%) 0 ml IV UD PRN PRN Reason: Hypoglycemia Fluticasone Propionate (Flovent Hfa 220mcg) 1 puff INH BID [facility] Last Admin: 07/01/17 11:08 Dose: Not Given Glucose (Insta-Glucose) 15 gm PO PRN PRN PRN Reason: Hypoglycemia Heparin Sodium (Porcine) (Heparin) 5,000 unit SQ Q12 [facility] Last Admin: 07/01/17 11:05 Dose: 5,000 unit Hydroxyzine HCl (Atarax) 25 mg PO HSP PRN PRN Reason: Sleep Last Admin: 06/30/17 20:31 Dose: 25 mg Isosorbide Dinitrate (Isordil) 5 mg PO TIDAC [facility] Last Admin: 07/01/17 15:55 Dose: 5 mg Lidocaine (Lidoderm) 1 patch TOPICAL DAILY@1000 [facility] Last Admin: 07/01/17 11:05 Dose: 1 patch Megestrol Acetate (Megace) 200 mg PO DAILY [facility] Last Admin: 07/01/17 11:07 Dose: 200 mg Mirtazapine (Remeron) 7.5 mg PO [facility] Last Admin: 06/30/17 20:32 Dose: 7.5 mg Multivit/Ca Carb/B Cmplx/FA/Prenat (Diatx) 1 tab PO DAILY [facility] Last Admin: 07/01/17 11:06 Dose: 1 tab Naloxone HCl (Narcan) 0.1 mg IV Q2MIN PRN PRN Reason: Opiate Reversal Nitroglycerin (Nitrostat) 0.4 mg SL Q5M PRN PRN Reason: Chest Pain Ondansetron HCl (Zofran) 4 mg IV Q4HP PRN PRN Reason: Nausea And Vomiting Last Admin: 06/30/17 08:55 Dose: 4 mg Oxycodone/Acetaminophen (Percocet 5-325 Mg) 1 tab PO Q4HP PRN PRN Reason: Pain Last Admin: 07/01/17 11:06 Dose: 1 tab Budesonide/Formoterol Fumarate [Symbicort] 160-4.5 Mcg Inhaler 1 dose INH BID [facility] Last Admin: 07/01/17 11:08 Dose: Not Given Lurasidone Hcl [ (Latuda] 80 Mg Tab) 1 dose PO DAILY [facility] Last Admin: 07/01/17 11:08 Dose: Not Given Potassium Chloride (Klor-Con) 20 meq PO [facility] Last Admin: 07/01/17 07:52 Dose: 20 meq Potassium/Phosphorus/Sodium (Neutra Phos) 1 packet PO TID [facility] Last Admin: 07/01/17 15:55 Dose: 1 packet Promethazine HCl (Phenergan) 12.5 mg IV Q4-6HP PRN PRN Reason: Nausea And Vomiting Ropinirole HCl (Requip) 3 mg PO DAILY [facility] Last Admin: 07/01/17 11:05 Dose: 3 mg Sodium Chloride (Sodium Chloride) 1 gm PO BID [facility] Last Admin: 07/01/17 11:06 Dose: 1 gm Medical - PN: A/P - Time Spent With Patient Total time spent is greater than 50% in coordination of care (as documented) at patient's floor/unit and/or counseling patient: 25 - 35 minutes - Narrative A/P Narrative: A/P Acute on Chr Hyponatremia: [place] Na 123. Completely resolved now at 139. Likely multifactorial, initially w hypovolemia and then had component of SIADH (2/2 back pain. Cont HD, FR of 1.5L and salt tablets, nephrology following. Acute encephalopathy, multifactorial and now improving -polypharmacy--see bipolar d/o assessment -hyponatremia, improved -difficulty hearing--does not have hearing aids -hypercalcemia, improved Elevated LFTs w N/v, improved -no abdominal pain. US neg. Dysphagia w h/o esophageal stricture -EGD soon after DC to evaluate for need for dilatation. ESRD on HD: HD T TH Sat. Nephrology consult appreciated. On renal diet Lung Cancer: MRI neg for brain met. s/p XRT; now being monitored as OP Chronic back pain: on Percocet here. Will add lidocaine patch. Dr. Sanford will manage opiates as OP. Hypercalcemia: Hyperparathyroidism, cont sensipar 90 as per nephrology DM: On SSI. Not needing BG coverage. DC'd SSI. Cont ADA diet. HTN: Home regimen: Imdur. Cont'd here. Bipolar disorder: On latuda, follows with [facility]. Oral tics likely 2/2 antipsychotic use. DC Reglan started for nausea 06/29. Weaned off trazodone as recommended as OP, now on Latuda, mirtazapine. Home Megace decreased from 625mg-->200mg QD as can worsen depression. Seen by Q x 2 this admission; not detained. Will need close F/U as OP. COPD: Cont budesonide nebs +PRN duonebs. Depression with Suicidal ideations: Currently denies; was evaluated by Q. Leucocytosis: resolved DVT hep sq Code: Full Dispo: home tomorrow. Medical - PN: Qual - VTE Deep Vein Thrombosis/Pulmonary Embolism Present on Admission: No
--- NOTE | 2017-07-01 17:16 | Discharge Summary ---
Medical - DS: Prov Patient information: Note initiated : 07/01/17 at 5:11 pm Service Date, if different from initiated Date: 07/02/17 Patient: Amanda Wetzel 61 y/o F admitted on 06/26/17 for Chest Pain/Hyponatremia , Hypercalcemia. Chief Complaint: [] Date of admission: 06/26/17 21:52 Discharge date: 07/02/17 Primary care physician: Yaquelin Sow Attending physician on admission: Jonathan Qusipe Consults: 06/26/17 18:08 Consult to Physician [CONS] Stat Comment: Consulting Provider: Annabella Sanford Reason For Exam: Physician to Consult Consult to Physician [CONS] Stat Comment: Consulting Provider: Jonathan Quispe Reason For Exam: Physician to Consult Attending physician on discharge: Ramya Tang Medical - DS: Meds - Discharge Medications Prescriptions: Cinacalcet [Sensipar] 90 mg PO QAMCC #30 tab Lidocaine [Lidoderm] 1 patch TOPICAL DAILY@1000 #30 patch Megestrol Acetate [Megace Es] 200 mg PO DAILY #30 oral.susp Mirtazapine [Remeron] 7.5 mg PO HS #15 tab oxyCODONE/APAP [Percocet 5-325 mg] 1 tab PO Q4HP PRN #30 tab PRN Reason: Pain Sodium Chloride 1 gm PO BID #60 tab Active and Home Medications: Home Medications Ipratropium/Albuterol [Duoneb] 3 ml NEB Q4HP PRN #60 ampul.neb 07/23/15 [Rx Confirmed 06/26/17 Last Taken 01/28/16] Nebulizer Accessories [Reusable Nebulizer Kit] 1 each MC Q4HP PRN #1 kit [Rx Confirmed 06/26/17 Last Taken 01/28/16] Nebulizer [Compact Ultrasonic Nebulizer] 1 each MC Q4HP PRN #1 each 07/23/15 [ Rx Confirmed 06/26/17 Last Taken 01/28/16] omeprazole 20 mg capsule,delayed release 20 mg PO BID #180 cap 09/05/15 [Rx Confirmed 01/27/17 Last Taken 01/28/16] blood-glucose meter kit See Dose Instructions .ROUTE .MEDSUPPLY #1 each [Rx Confirmed 01/27/17 Last Taken 01/28/16] traMADol [Ultram] 50 mg PO Q4-6HP PRN #20 tab 12/26/15 [Rx Confirmed 06/26/17 Last Taken 01/28/16] atorvastatin 40 mg tablet 40 mg PO QDAY #90 tab 04/03/16 [Rx Confirmed 06/26/17 Last Taken Unknown] acetaminophen 325 mg tablet 650 mg PO Q4H PRN 05/07/16 [History Confirmed Last Taken Unknown] alteplase 2 mg intra-catheter solution 2 mg INTRA-CATHETER PRN ml 05/07/16 [ History Confirmed 06/26/17 Last Taken Unknown] midodrine 5 mg tablet 2.5 mg PO .qod #14 tab 06/03/16 [Rx Confirmed 06/26/17 Last Taken Unknown] ondansetron 4 mg disintegrating tablet 4 mg PO Q4-6H PRN #30 tab 06/03/16 [Rx Confirmed 06/26/17 Last Taken Unknown] albuterol sulfate HFA 90 mcg/actuation aerosol inhaler 180 mcg INHALATION Q6H PRN #6.7 g 12/28/16 [Rx Confirmed 06/26/17 Last Taken Unknown] Budesonide/Formoterol Fumarate [Symbicort 160-4.5 Mcg Inhaler] 10.2 gm IH BID [History Confirmed 06/26/17 Last Taken Unknown] Clopidogrel Bisulfate [Plavix] 75 mg PO DAILY 06/26/17 [History Confirmed Last Taken Unknown] Fluticasone Propionate [Flovent Diskus] 50 mcg IH DAILY 06/26/17 [History Confirmed 06/26/17 Last Taken Unknown] Isosorbide Dinitrate [Isordil] 5 mg PO TID 06/26/17 [History Confirmed 06/26/17 Last Taken Unknown] Lurasidone HCl [Latuda] 80 mg PO DAILY 06/26/17 [History Confirmed 06/26/17 Last Taken Unknown] Megestrol Acetate [Megace Es] 625 mg PO DAILY 06/26/17 [History Confirmed Last Taken Unknown] Potassium Chloride [Klor-Con M20] 20 meq PO DAILY 06/26/17 [History Confirmed Last Taken Unknown] Prochlorperazine Maleate [Compazine] 10 mg PO Q6HP PRN 06/26/17 [History Confirmed 06/26/17 Last Taken Unknown] Vit B Comp C/Folic Acid/Vit D3 [Dialyvite 800 Plus D Wafer] 1 each PO DAILY 07/02 [History Confirmed 06/26/17 Last Taken Unknown] hydrOXYzine PAMOATE [Hydroxyzine Pamoate] 25 mg PO HS PRN 06/26/17 [History Confirmed 06/26/17 Last Taken Unknown] predniSONE [Prednisone] 4 mg PO QAMCC 06/26/17 [History Confirmed 06/26/17 Last Taken Unknown] rOPINIRole HCL [Requip] 3 mg PO QDAY 06/26/17 [History Confirmed 06/26/17 Last Taken Unknown] traZODone HCL [Desyrel] 300 mg PO DAILY 06/26/17 [History Confirmed 06/26/17 Last Taken Unknown] Medical - DS: Hosp Hospital course: Mrs. Wetzel is a 61 year old F with a history of bipolar disorder, end-stage renal disease on dialysis who presented to the ER with weakness and chest pain. She was found to have hyponatremia to 123. Her chest pain workup was negative. She voiced suicidal ideation in the ER and was seen by [facility] twice this admission and denies suicidal ideation; she was not detained. She has been difficult to communicate with and this has been secondary to confusion and difficulty with hearing as well as multiple medical issues causing delirium. Her hyponatremia was initially hypovolemic and improved with IV fluids. If that looks like an SIADH picture and she was started on salt tablets. This completely corrected with this treatment and dialysis. Given her history of lung cancer, an MRI of her brain was done to look for metastases. No metastases were found on MRI. She received fentanyl for sedation for the MRI and had post-procedure nausea and vomiting with LFT elevation. Ultrasound was done which was negative for stones or ductal dilatation. Her LFTs trended down on their own. Her mental status continued to improve and she notes that it is difficult to hear people so sometimes she does not answer. She is frustrated with her back pain, but this is improved with the lidocaine patch and opiates on the hospital. Dr. Sanford is willing to prescribe her opiates to control her back pain. She states she does want to continue on dialysis. She had dysphagia and was dilated by speech therapy. Given her regurgitation and history of esophageal stricture, she is recommended to follow up with outpatient EGD to assess for repeat dilatation. She is followed by psych at [facility] for her bipolar disorder and has undergone multiple medication changes. She was supposed to taper off her trazodone which was completed here in the hospital. She continues on Latuda. Her Megace was decreased from 625 mg to 200 mg as it can worsen depression. She was mildly hypercalcemic and her vitamin D was held. Discharge diagnosis: Acute encephalopathy, multifactorial Secondary discharge diagnosis: Polypharmacy Hyponatremia, improved Difficulty hearing Hypercalcemia Elevated LFTs, improving Dysphagia with history of esophageal stricture. She and her are aware that they need outpatient EGD for evaluation of recurrent stricture. ESRD on HD Lung cancer Chronic back pain DM HTN Bipolar d/o COPD Depression with suicidal ideation - Time Spent with Patient Total time spent providing and/or coordinating discharge services: Greater than 30 minutes Medical - DS: Exam - Constitutional Vitals: Vital Signs Temp Pulse Pulse Resp BP BP Pulse Ox 07/01/17 16:00 98.4 F 82 16 128/62 95 07/01/17 12:00 97.5 F 96 H 18 112/52 100 07/01/17 08:00 98.4 F 84 16 126/72 96 07/01/17 04:00 97.1 F 104 H 18 100/60 95 07/01/17 00:00 97.5 F 108 H 18 116/60 91 06/30/17 20:00 97.5 F 80 24 H 92/60 95 06/30/17 17:55 97.7 F 47 L 85/59 06/30/17 17:39 55 L 117/61 06/30/17 17:25 45 L 84/59 Intake and Output 07/01/17 07/01/17 07/01/17 05:59 13:59 21:59 Intake Total 225 / 225 240 / 240 250 / 250 Output Total 100 / 100 450 / 450 Balance 225 / 225 140 / 140 -200 / -200 Intake: Oral 225 / 225 240 / 240 250 / 250 Output: Void Amount 100 / 100 450 / 450 Other: Meal Breakfast Percent of Meal Consumed 75% Feeding Ability Assist with Tray Set Up # Voids 1 # Bowel Movements 1 Weight 100 lb 12.8 oz Patient Weight 07/02/17 05:59 Weight 100 lb 12.8 oz Additional comments: Gen: NAD Resp: CTAB. CV: RRR Abd: soft/nd/nt NRO: Alert. [place]. Medical - DS: Data Procedures and tests throughout hospitalization: Brain MRI IMPRESSION: 1. Cerebral atrophy 2. Mild nonspecific white matter abnormality. No evidence for intracranial metastasis. 3. No acute or focal abnormality. Abd US IMPRESSION: 1. Previous cholecystectomy. Prominent common bile duct without intrahepatic bile duct dilatation 2. Mildly echogenic liver may be secondary to hepatic steatosis. No focal abnormality. CXR IMPRESSION: 1. No acute or focal abnormality 2. No interval change since 04/15/2017 Labs on day of discharge: Labs from last 24 hours 07/01/17 07/01/17 04:10 04:10 WBC 6.4 RBC 2.64 L Hgb 8.7 L Hct 25.7 L MCV 97.4 MCH 33.1 MCHC 33.9 RDW 13.1 Plt Count 384 MPV 6.6 L Gran % 68.7 Lymph % (Auto) 16.4 [place] % (Auto) 12.2 H Eos % (Auto) 2.0 Baso % (Auto) 0.7 Gran # 4.4 Lymph # (Auto) 1.0 L [place] # (Auto) 0.8 Eos # (Auto) 0.1 Baso # (Auto) 0 Sodium 140 Potassium 3.6 Chloride 97 Carbon Dioxide 29 Anion Gap 14.0 BUN 8 Creatinine 2.0 H GFR Calculation 26 Glucose 88 Uric Acid 2.3 L Calcium 10.3 Phosphorus 1.9 L Magnesium 2.2 Total Bilirubin 0.2 Direct Bilirubin < 0.2 GGT 284 H AST 38 H ALT 69 H Alkaline Phosphatase 221 H Lactate Dehydrogenase 196 Total Protein 7.0 Albumin 4.0 Globulin 3.0 Albumin/Globulin Ratio 1.3 Triglycerides 72 Medical - DS: A/P - Patient/Caregiver Discharge Instructions Activity: resume usual activities as tolerated Diet: Dysphagia Pureed Additional Instructions: Follow up with gastroenterology for an EGD to evaluate whether you have a stricture in your esophagus affecting your swallowing. Prescriptions: Cinacalcet [Sensipar] 90 mg PO QAC #30 tab Lidocaine [Lidoderm] 1 patch TOPICAL DAILY@1000 #30 patch Megestrol Acetate [Megace Es] 200 mg PO DAILY #30 oral.susp Mirtazapine [Remeron] 7.5 mg PO HS #15 tab oxyCODONE/APAP [Percocet 5-325 mg] 1 tab PO Q4HP PRN #30 tab PRN Reason: Pain Sodium Chloride 1 gm PO BID #60 tab - Follow up Plan Follow up with: Ramandeep Valdes ARNP [Nurse Practitioner] - 07/15/17 11:15 am Yaquelin Sow ARNP [Primary Care Provider] - Disposition: Home, Self-Care Prognosis: Fair Rehab Potential: Fair I certify that the patient requires SNF services: No Overall status at discharge: patient is progressing back to baseline Medical - DS: Qual - VTE Deep Vein Thrombosis/Pulmonary Embolism Present on Admission: No
[2017-07-01] MEDS: MIRTAZAPINE 15 MG TABLET PO SCH (20:36)
[2017-07-01] MEDS: ATORVASTATIN 20 MG TABLET PO SCH (20:37)
[2017-07-02] MEDS: FLUTICASONE HFA 220MCG INHALER INH SCH (01:03)
[2017-07-02 07:03] LABS: Basophils # (Auto) 0.1 K/mcL (0.0-0.3); Basophils % (Auto) 0.7 % (0.0-2.0); Eosinophils # (Auto) 0.2 K/mcL (0.0-0.7); Eosinophils % (Auto) 2.3 % (0.0-7.0); Granulocytes % (Auto) 69.3 % (38.0-78.0); Lymphocytes # (Auto) 1.4 K/mcL (1.5-4.8); Lymphocytes % (Auto) 18.4 % (15.5-49.0); Mean Cell Volume 97.3 fL (80.0-100.0); Mean Corpuscular HGB Conc 33.8 g/dL (31.0-36.0); Mean Corpuscular Hemoglobin 32.8 pg (26.0-34.0); Monocytes # (Auto) 0.7 K/mcL (0.1-0.9); Monocytes % (Auto) 9.3 % (1.0-12.0); Platelet Count 447 K/mcL (140-440); RBC 2.94 M/mcL (4.00-5.20)
[2017-07-02 07:31] LABS: ALT/SGPT 166 U/l (0-40); Albumin 4.5 gm/dL (3.2-5.2); Albumin/Globulin Ratio 1.4 (1.0-2.3); Alkaline Phosphatase 312 U/L (39-117); Bilirubin,Direct < 0.2 mg/dL (0.0-0.3); Blood Urea Nitrogen 20 mg/dl (8-23); Gamma Glutamyl Transpeptidase 455 U/L (5-36); Magnesium 2.3 mg/dL (1.6-2.5); Uric Acid 3.9 mg/dL (2.5-8.0)
[2017-07-02 07:54] LABS: Adrenocorticotropic Hormone 7 pg/mL (6-50)
== END 2017-07-02 06:30 | disposition home or self-care (01) | DRG 71 ==
LOC: ED 15:34 → ICU 21:34
PROVIDERS: ADMIT Internal Medicine; ATTEND Internal Medicine